=== PATIENT | female | born 1970 | race Caucasian/White ===

== ENCOUNTER 2019-05-08 16:16 | Inpatient (IN) | payer OTHER ==
[2019-05-08 16:49] VITALS: BMI 19.3
--- NOTE | 2019-05-08 18:47 | HP ---
CIWA Score Nausea/Vomitin Muscle Tremors: 3 Anxiety: 4-Mod. Anxious/Guarded Agitation: 2 Paroxysmal Sweats: 3 Orientation: 0-Oriented Tacttile Disturbances: 2-Mild Itch/Numbness/Burn Auditory Disturbances: 0-None Visual Disturbances: 2-Mild Sensitivity Headache: 0-None Present CIWA-Ar Total Score: 19 - Admission Criteria OASAS Guidelines: Admission for Medically Managed Detox: Requires at least one of the followin. CIWA greater than 12 2. Seizures within the past 24 hours 3. Delirium tremens within the past 24 hours 4. Hallucinations within the past 24 hours 5. Acute intervention needed for co occurring medical disorder 6. Acute intervention needed for co occurring psychiatric disorder 7. Severe withdrawal that cannot be handled at a lower level of care (continued vomiting, continued diarrhea, abnormal vital signs) requiring intravenous medication and/or fluids 8. Admitting History and Physical - Primary Care Physician PCP: Miguel Darling MD ([facility]) - Admission Chief Complaint: "I just want to get off of illegal drugs and drinking.". Patient is here to Detox from Alcohol and Heroin. History of Present Illness: Patient is a 48 YO female here to Detox from Alcohol and Heroin. Patient has had 1 previous Detox admission at [facility] in 02/2019. Patient also uses Cocaine (approx. 1 X / week). [facility] [place] daily dose: 40 mg daily, last day taken: today, 05/08/2019. Verification Pending. Confidential Drug Utilization Report Search Terms: Domenica Vazquez, 1970 Search Date: 05/08/2019 09:43:15 PM The Drug Utilization Report below displays all of the controlled substance prescriptions, if any, that your patient has filled in the last twelve months. The information displayed on this report is compiled from pharmacy submissions to the Department, and accurately reflects the information as submitted by the pharmacies. This report was requested by: Philip Alcocer | Reference #: [id number] You have not added a LUKE number. Keeping your LUKE number(s) up to date on the My LUKE Numbers page will enable the separation of your prescriptions from others ' in the search results. Others' Prescriptions Patient Name: Shyann Vazquez Date: 1970 Address: [address] [place] [address] [place] [id number] Sex: Female Rx Written Rx Dispensed Drug Quantity Days Supply Prescriber Name 08/02/2018 08/02/2018 clonazepam 1 mg tablet 30 30 Lucille Solomon B, MD 06/30/2018 06/30/2018 clonazepam 1 mg tablet 30 30 Lucille Solomon B, MD 05/31/2018 05/31/2018 clonazepam 1 mg tablet 30 30 Anthony Hendrickson * - Drugs marked with an asterisk are compound drugs. If the compound drug is made up of more than one controlled substance, then each controlled substance will be a separate row in the table. History Source: Patient Limitations to Obtaining History: No Limitations - Past Medical History Cardiovascular: Yes: Other (History of Endocarditis (2014), Subsequent Colapsed Lung (Bilateral).) Pulmonary: Yes: COPD (Chronic Bronchitis.) ...LMP Comment: Last: 11/2017. ...: No Psych: Yes: Anxiety, Depression, Other (Possible P.T.S.D. ?) Additional Past Medical History: DENIES. - Past Surgical History Past Surgical History: Yes: Cystectomy (1990) Additional Past Surgical History: Removal of Tumor on Carotid Artery (2017). - Smoking History Smoking history: Current every day smoker Have you smoked in the past 12 months: Yes Aproximately how many cigarettes per day: 6 - Alcohol/Substance Use Hx Alcohol Use: Yes Number of Drinks Daily: 12 (Beers (16 oz.)) History of Substance Use: reports: Cocaine, Heroin Date of Last Use: 05/08/19 - Social History Usual Living Arrangement: Yes: Other (Living with friends, wishes to go back to former Nursing Home.) Do you think of yourself as: Straight/Heterosexual ADL: Independent Occupation: Not Currently, on SSI. History of Recent Travel: No Admission [facility] Chief Complaint: "I just want to get off of illegal drugs and drinking." Patient is here to Detox from Alcohol and Heroin. Allergies/Adverse Reactions: Allergies Allergy/AdvReac Type Severity Reaction Status Date / Time tramadol [From Ultram] Allergy Severe throat Verified 05/08/19 16:21 swelling History of Present Illness: Patient is a 48 YO female here to Detox from Alcohol and Heroin. Patient has had 1 previous Detox admission at [facility] in 02/2019. Patient also uses Cocaine (approx. 1 X / week). Patient is a client at [facility] ([place], [place]), daily dose: 40 mg daily, last day taken: today, 05/08/2019. Exam Limitations: No Limitations - Ebola screening Have you traveled outside of the country in the last 21 days: No (N) Have you had contact with anyone from an Ebola affected area: No Have you been sick,other than usual withdrawal symptoms: Yes (Has a "cold." Cough, Nasal Congestion.) Do you have a fever: No - Review of Systems Constitutional: Chills, Diaphoresis, Malaise, Night Sweats, Changes in sleep, Unintentional Wgt. Loss (Lost approx. 18 lbs. over last 6 months.) EENT: reports: Nose Congestion Respiratory: reports: Cough (Has a "cold.") Cardiac: reports: Palpitations (Occasional.) GI: reports: Diarrhea, Nausea, Poor Appetite, Abdominal cramping (Intermittent, due to history of hernia.) : reports: No Symptoms Reported Musculoskeletal: reports: Back Pain Integumentary: reports: Other (Small scabbing wounds on bilateral forearms and on popliteal fossa of Right Knee.) Neuro: reports: Headache, Tremors Endocrine: reports: No Symptoms Reported Hematology: reports: Anemia (In past, treated with Iron supplement.) Psychiatric: reports: No Sypmtoms Reported, Judgement Intact, Mood/Affect Appropiate, Orientated x3, Anxious, Depressed Other Systems: Reviewed and Negative Patient History - Patient Medical History Hx Anemia: Yes (Has taken Iron supplement in past.) Hx Asthma: No Hx Chronic Obstructive Pulmonary Disease (COPD): Yes (Chronic Bronchitis.) Hx Cancer: No Hx Cardiac Disorders: Yes (HX/O ENDOCARDITIS, 2015.) Hx Congestive Heart Failure: No Hx Hypertension: No Hx Hypercholesterolemia: No Hx Pacemaker: No HX Cerebrovascular Accident: No Hx Seizures: No Hx Dementia: No Hx Diabetes: No Hx Gastrointestinal Disorders: Yes (UMBILICAL HERNIA WITH INTERMITTENT PAIN) Hx Liver Disease: Yes (HEP C, TX'd WITH MAVIROC, COMPLETED.) Hx Genitourinary Disorders: No Hx Sexually Transmitted Disorders: No Hx Renal Disease (ESRD): No Hx Thyroid Disease: No Hx Human Immunodeficiency Virus (HIV): No (Recently Tested, Uncertain about exactly when.) Hx Hepatitis C: Yes (COMPLETED TREATMENT W/ MAVIRIOC.) Hx Depression: Yes (AND ANXIETY-DENIES SI) Hx Suicide Attempt: No (DENIES CURRENT SI / HI.) Hx Bipolar Disorder: No Hx Schizophrenia: No Other Medical History: DENIES. - Patient Surgical History Past Surgical History: Yes Hx Neurologic Surgery: No Hx Cataract Extraction: No Hx Cardiac Surgery: No Hx Lung Surgery: No Hx Breast Surgery: No Hx Breast Biopsy: No Hx Abdominal Surgery: No Hx Appendectomy: No Hx Cholecystectomy: No Hx Genitourinary Surgery: No Hx Section: No Hx Orthopedic Surgery: No Other Surgical History: LEFT CAROTID TUMOR REMOVED 2007; OVARIAN CYSTECTOMY, 1997. Anesthesia Reaction: No - PPD History Previous Implant?: Yes Documented Results: Negative w/o proof Implanted On Prior [facility] Admission?: No PPD to be Administered?: Yes - Reproductive History Patient is a Female of Child Bearing Age (11 -55 yrs old): Yes Last Menstrual Period: 12/11/16 Patient : No - Smoking Cessation Smoking history: Current every day smoker Have you smoked in the past 12 months: Yes Aproximately how many cigarettes per day: 6 Cigars Per Day: 0 Hx Chewing Tobacco Use: No Initiated information on smoking cessation: Yes 'Breaking Loose' booklet given: 05/08/19 (GIVEN TO PATIENT.) - Substance & Tx. History Hx Alcohol Use: Yes Hx Substance Use: Yes Substance Use Type: Alcohol, Cocaine, Heroin Hx Substance Use Treatment: Yes (Detox admssion at [facility] (03/2019).) - Substances abused Alcohol Other (specify): BEERS Substance route: Oral Frequency: Daily Amount used: 8- 12 OZ beers Age of first use: 14 Date of last use: 05/08/19 Heroin Frequency: Daily Amount used: 2 bags Age of first use: 25 Date of last use: 05/06/19 Cocaine Substance route: Smoking Frequency: 1-2 times per week Amount used: $20 Age of first use: 26 Date of last use: 05/05/19 Admission Physical Exam BHS - Vital Signs Vital Signs: Vital Signs - 24 hr 05/08/19 16:46 Temperature 97.2 F L Pulse Rate 77 Respiratory 16 Rate Blood Pressure 105/64 - Physical General Appearance: Yes: No Apparent Distress, Nourished, Appropriately Dressed , Tremorous, Sweating, Anxious, Other (Lethargic.) HEENTM: Yes: Hearing grossly Normal, Normocephalic, Normal Voice, ALLISON, Pharynx Normal Respiratory: Yes: Chest Non-Tender, Lungs Clear, No Respiratory Distress, No Accessory Muscle Use Neck: Yes: No masses,lesions,Nodules, Supple, Trachea in good position Breast: Yes: Breast Exam Deferred Cardiology: Yes: Regular Rhythm, Regular Rate, S1, S2 Abdominal: Yes: Normal Bowel Sounds, Non Tender, Flat, Soft Genitourinary: Yes: Within Normal Limits Back: Yes: CVA Tenderness, Decreased Range of Motion Musculoskeletal: Yes: Gait Steady, Back pain Extremities: Yes: Normal Capillary Refill, Normal Range of Motion, Non-Tender, Tremors Neurological: Yes: Fully Oriented, Alert, Normal Mood/Affect, Normal Response Integumentary: Yes: Normal Color, Dry, Warm, Other (Several small wounds on bilateral forearms. Patient reports that she "picks" at those areas when she is withdrawing. No discahrge or signs of infection noted at affected sites. Small scabbing wound noted at lateral aspect of popliteal area of right knee. Patient reprots that area feels painful. Patient uncertain how wound occurred. No discharge or sign of infection noted at site.) Lymphatic: Yes: Within Normal Limits - Diagnostic (1) History of endocarditis Current Visit: No Status: Resolved (2) Alcohol dependence with uncomplicated withdrawal Current Visit: Yes Status: Acute (3) COPD (chronic obstructive pulmonary disease) Current Visit: Yes Status: Chronic Qualifiers: COPD type: chronic bronchitis Chronic bronchitis type: unspecified Qualified Code(s): J42 - Unspecified chronic bronchitis (4) HCV (hepatitis C virus) Current Visit: No Status: Resolved Qualifiers: Viral hepatitis chronicity: unspecified Hepatic coma status: without hepatic coma Qualified Code(s): B19.20 - Unspecified viral hepatitis C without hepatic coma Comment: Completed Treatment. (5) Methadone maintenance therapy patient Current Visit: Yes Status: Chronic (6) Nicotine dependence Current Visit: Yes Status: Chronic Qualifiers: Nicotine product type: cigarettes Substance use status: uncomplicated Qualified Code(s): F17.210 - Nicotine dependence, cigarettes, uncomplicated (7) Anxiety and depression Current Visit: Yes Status: Chronic Cleared for Admission S - Detox or Rehab [facility] Level of Care: Medically Managed Detox Regimen/Protocol: Methadone/Librium Claeared for Rehab Admission: No Breathalyzer - Breathalyzer Breathalyzer: 0 Urine Drug Screen - Test Device Lot number: [id number] Expiration date: 12/24/20 - Control Is test valid?: Yes - Results Drug screen NEGATIVE: Yes Urine drug screen results: PRIMITIVO-Cocaine, FEN-Fentanyl, MOP-Opiates, MTD-Methadone , BZO-Benzodiazepines Inpatient Rehab Admission - Rehab Decision to Admit Inpatient rehab admission?: No
[2019-05-08] MEDS ORDERED: METHOCARBAMOL 500 MG TABLET PO PRN (19:25)
[2019-05-08] MEDS ORDERED: MAGNESIUM HYDROX 2400MG/30ML ORAL SUSPENSION 30 ML CUP PO PRN (19:25)
[2019-05-08] MEDS ORDERED: BISMUTH SUBSALICYLATE 524 MG/30 ML UD PO PRN (19:25)
[2019-05-08] MEDS ORDERED: IBUPROFEN 400 MG TABLET (FP) PO PRN (19:25)
[2019-05-08] MEDS ORDERED: MAG HYDROX/AL HYDROX/SIMETH 30 ML UNIT-DOSE CUP PO PRN (19:25)
[2019-05-08] MEDS ORDERED: ACETAMINOPHEN 325 MG TABLET (FP) PO PRN ×2 (19:25)
[2019-05-08] MEDS ORDERED: LORazepam 1 MG TABLET PO PRN (19:25)
[2019-05-08] MEDS ORDERED: MENTHOL/PHENOL 1 EACH UD MM PRN (19:25)
[2019-05-08] MEDS ORDERED: MAGNESIUM CITRATE 300 ML BOTTLE PO PRN (19:25)
[2019-05-08] MEDS ORDERED: guaiFENesin 200 MG/10 ML 10 ML UNIT-DOSE CUPS PO PRN (19:29)
[2019-05-08] MEDS ORDERED: ALBUTEROL SO4 8 GM HFA INHALER IH PRN (19:29)
[2019-05-08] MEDS ORDERED: LORazepam 2 MG TABLET PO ONE (19:45)
[2019-05-08] MEDS: THIAMINE HCL 100 MG TABLET (FP) PO SCH (22:23)
[2019-05-08] MEDS: BUDESONIDE/FORMETEROL FUMARATE 160/4.5 mcg INHALER IH SCH (22:23)
[2019-05-08] MEDS: BACITRACIN/POLYMYXIN B SULFATE 15 GM TUBE TP SCH (22:42)
[2019-05-09] MEDS: LORazepam 2 MG TABLET PO SCH ×4 (05:41→22:05)
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
[2019-05-09 10:07] LABS: HEMATOCRIT 36.5 % (32.4-45.2); HEMOGLOBIN 12.1 GM/dL (10.7-15.3); MCHC 33.1 g/dl (32.0-36.0); MEAN CELL VOLUME 102.5 fl (80-96); MEAN PLT VOLUME 8.6 fl (7.5-11.1); PLATELET COUNT 207 K/MM3 (134-434); RBC 3.56 M/mm3 (3.60-5.2); RDW 13.5 % (11.6-15.6); WHITE BLOOD COUNT 5.5 K/mm3 (4.0-10.0)
[2019-05-09 10:13] LABS: ALBUMIN 2.7 g/dl (3.4-5.0); BILIRUBIN,TOTAL 0.2 mg/dL (0.2-1); BLOOD UREA NITROGEN 8.9 mg/dL (7-18); CALCIUM 8.5 mg/dL (8.5-10.1); CREATININE 0.7 mg/dL (0.55-1.3); POTASSIUM 4.1 mmol/L (3.5-5.1); TOT PROT 5.9 g/dl (6.4-8.2)
[2019-05-09] MEDS: NICOTINE 14 MG/24 HOURS TOPICAL PATCH TD SCH (10:46)
[2019-05-09] MEDS: BACITRACIN/POLYMYXIN B SULFATE 15 GM TUBE TP SCH ×2 (10:46→22:04)
[2019-05-09] MEDS: BUDESONIDE/FORMETEROL FUMARATE 160/4.5 mcg INHALER IH SCH ×2 (10:46→22:04)
[2019-05-09] MEDS: PRENATAL VITAMINS W/ FOLIC ACID TABLET (FP) PO SCH (10:46)
--- NOTE | 2019-05-09 13:05 | EKG ---
Test Reason : Blood Pressure : / mmHG Vent. Rate : 072 BPM Atrial Rate : 072 BPM P-R Int : 094 ms QRS Dur : 086 ms QT Int : 404 ms P-R-T Axes : 064 045 072 degrees QTc Int : 442 ms SINUS RHYTHM WITH SHORT WI SEPTAL INFARCT (CITED ON OR BEFORE 14-MAR-2019) ABNORMAL ECG WHEN COMPARED WITH ECG OF 14-MAR-2019 22:13, QUESTIONABLE CHANGE IN INITIAL FORCES OF SEPTAL LEADS Confirmed by ILIANA RIVERA MD ([id number]) on 05/09/2019 1:05:13 PM Referred By: SHANELL GUO Confirmed By:ILIANA RIVERA MD
[2019-05-09] MEDS ORDERED: METHADONE HCL 40 MG DISPERSABLE TABLET PO ONE (13:30)
--- NOTE | 2019-05-09 19:07 | PN ---
S CIWA - CIWA Score Nausea/Vomitin-No Nausea/No Vomiting Muscle Tremors: 2 Anxiety: 4-Mod. Anxious/Guarded Agitation: 3 Paroxysmal Sweats: 2 Orientation: 0-Oriented Tacttile Disturbances: 2-Mild Itch/Numbness/Burn Auditory Disturbances: 0-None Visual Disturbances: 0-None Headache: 0-None Present CIWA-Ar Total Score: 13 BHS Progress Note (SOAP) Subjective: Anxious, Sweating, Tremors, Fatigue. Objective: PATIENT A & O X 3, OBSERVED AMBULATING ON DETOX UNIT UNASSISTED. IN NO ACUTE DISTRESS. 05/09/19 19:06 Vital Signs Temperature 98.5 F 05/09/19 17:12 Pulse Rate 77 05/09/19 17:12 Respiratory Rate 16 05/09/19 17:12 Blood Pressure 134/78 05/09/19 17:12 O2 Sat by Pulse Oximetry (%) Laboratory Tests 05/08/19 05/09/19 05/09/19 17:17 08:00 08:00 WBC 5.5 RBC 3.56 L Hgb 12.1 Hct 36.5 MCV 102.5 H MCH 34.0 H MCHC 33.1 RDW 13.5 Plt Count 207 MPV 8.6 Sodium 142 Potassium 4.1 Chloride 106 Carbon Dioxide 32 Anion Gap 4 L BUN 8.9 Creatinine 0.7 Est GFR (CKD-EPI)AfAm 117.09 Est GFR (CKD-EPI)NonAf 101.02 Random Glucose 84 Calcium 8.5 Total Bilirubin 0.2 AST 17 ALT 20 Alkaline Phosphatase 100 Total Protein 5.9 L Albumin 2.7 L POC Urine HCG, Qual Negative RPR Titer 05/09/19 08:00 WBC RBC Hgb Hct MCV MCH MCHC RDW Plt Count MPV Sodium Potassium Chloride Carbon Dioxide Anion Gap BUN Creatinine Est GFR (CKD-EPI)AfAm Est GFR (CKD-EPI)NonAf Random Glucose Calcium Total Bilirubin AST ALT Alkaline Phosphatase Total Protein Albumin POC Urine HCG, Qual RPR Titer Nonreactive LABS NOTED. Assessment: 05/09/19 19:07 WITHDRAWAL SYMPTOMS. Plan: CONTINUE DETOX.
[2019-05-09] MEDS: THIAMINE HCL 100 MG TABLET (FP) PO SCH (22:04)
[2019-05-10] MEDS: LORazepam 1 MG TABLET PO SCH ×4 (05:23→22:07)
[2019-05-10] MEDS: BUDESONIDE/FORMETEROL FUMARATE 160/4.5 mcg INHALER IH SCH ×2 (10:05→22:08)
[2019-05-10] MEDS: METHADONE HCL 40 MG DISPERSABLE TABLET PO SCH (10:05)
[2019-05-10] MEDS: NICOTINE 14 MG/24 HOURS TOPICAL PATCH TD SCH (10:06)
[2019-05-10] MEDS: BACITRACIN/POLYMYXIN B SULFATE 15 GM TUBE TP SCH ×2 (10:06→22:08)
[2019-05-10] MEDS: PRENATAL VITAMINS W/ FOLIC ACID TABLET (FP) PO SCH (10:06)
[2019-05-10] MEDS ORDERED: BACLOFEN 10 MG TABLET (FP) PO PRN (14:09)
--- NOTE | 2019-05-10 14:12 | PN ---
S CIWA - CIWA Score Nausea/Vomitin-No Nausea/No Vomiting Muscle Tremors: 2 Anxiety: 3 Agitation: 1-Slight > Activity Paroxysmal Sweats: 2 Orientation: 0-Oriented Tacttile Disturbances: 1-Very Mild Itch/Numbness Auditory Disturbances: 0-None Visual Disturbances: 2-Mild Sensitivity Headache: 0-None Present CIWA-Ar Total Score: 11 BHS Progress Note (SOAP) Subjective: Fatigue, Body Aches, Anxious, Sweating. Objective: PATIENT A & O X 3. IN NO ACUTE DISTRESS. 05/10/19 14:10 Vital Signs Temperature 98.2 F 05/10/19 13:17 Pulse Rate 94 H 05/10/19 13:17 Respiratory Rate 20 05/10/19 13:17 Blood Pressure 119/79 05/10/19 13:17 O2 Sat by Pulse Oximetry (%) Laboratory Tests 05/08/19 05/09/19 05/09/19 17:17 08:00 08:00 WBC 5.5 RBC 3.56 L Hgb 12.1 Hct 36.5 MCV 102.5 H MCH 34.0 H MCHC 33.1 RDW 13.5 Plt Count 207 MPV 8.6 Sodium 142 Potassium 4.1 Chloride 106 Carbon Dioxide 32 Anion Gap 4 L BUN 8.9 Creatinine 0.7 Est GFR (CKD-EPI)AfAm 117.09 Est GFR (CKD-EPI)NonAf 101.02 Random Glucose 84 Calcium 8.5 Total Bilirubin 0.2 AST 17 ALT 20 Alkaline Phosphatase 100 Total Protein 5.9 L Albumin 2.7 L POC Urine HCG, Qual Negative RPR Titer 05/09/19 08:00 WBC RBC Hgb Hct MCV MCH MCHC RDW Plt Count MPV Sodium Potassium Chloride Carbon Dioxide Anion Gap BUN Creatinine Est GFR (CKD-EPI)AfAm Est GFR (CKD-EPI)NonAf Random Glucose Calcium Total Bilirubin AST ALT Alkaline Phosphatase Total Protein Albumin POC Urine HCG, Qual RPR Titer Nonreactive LABS NOTED. Assessment: 05/10/19 14:11 WITHDRAWAL SYMPTOMS. Plan: CONTINUE DETOX. PRN BACLOFEN PO FOR BODY ACHES / MUSCLE SPASMS (PATIENT'S REQUEST).
[2019-05-10] MEDS: THIAMINE HCL 100 MG TABLET (FP) PO SCH (22:07)
[2019-05-10] MEDS: MELATONIN 5 MG TABLETS PO PRN (22:08)
[2019-05-11] MEDS ORDERED: LORazepam 0.5 MG TABLET PO PRN
[2019-05-11] MEDS: METHADONE HCL 40 MG DISPERSABLE TABLET PO SCH (05:59)
[2019-05-11] MEDS: LORazepam 0.5 MG TABLET PO SCH ×4 (05:59→22:15)
[2019-05-11] MEDS: NICOTINE 14 MG/24 HOURS TOPICAL PATCH TD SCH (10:47)
[2019-05-11] MEDS: BACITRACIN/POLYMYXIN B SULFATE 15 GM TUBE TP SCH ×2 (10:47→22:15)
[2019-05-11] MEDS: BUDESONIDE/FORMETEROL FUMARATE 160/4.5 mcg INHALER IH SCH ×2 (10:48→22:15)
[2019-05-11] MEDS: PRENATAL VITAMINS W/ FOLIC ACID TABLET (FP) PO SCH (10:48)
--- NOTE | 2019-05-11 17:23 | PN ---
S CIWA - CIWA Score Nausea/Vomitin-No Nausea/No Vomiting Muscle Tremors: None Anxiety: 0-No Anxiety, at Ease Agitation: 1-Slight > Activity Paroxysmal Sweats: No Perspiration Orientation: 0-Oriented Tacttile Disturbances: 0-None Auditory Disturbances: 0-None Visual Disturbances: 0-None Headache: 0-None Present CIWA-Ar Total Score: 1 BHS Progress Note (SOAP) Subjective: Patient denies current Withdrawal / Detox symptoms and reports that he feels well overall at this time. Objective: PATIENT A & O X 3, OBSERVED AMBULATING ON DETOX UNIT UNASSISTED. IN NO ACUTE DISTRESS. 05/11/19 17:22 Vital Signs Temperature 97.3 F L 05/11/19 13:57 Pulse Rate 97 H 05/11/19 13:57 Respiratory Rate 18 05/11/19 13:57 Blood Pressure 109/76 05/11/19 13:57 O2 Sat by Pulse Oximetry (%) Laboratory Tests 05/08/19 05/09/19 05/09/19 17:17 08:00 08:00 WBC 5.5 RBC 3.56 L Hgb 12.1 Hct 36.5 MCV 102.5 H MCH 34.0 H MCHC 33.1 RDW 13.5 Plt Count 207 MPV 8.6 Sodium 142 Potassium 4.1 Chloride 106 Carbon Dioxide 32 Anion Gap 4 L BUN 8.9 Creatinine 0.7 Est GFR (CKD-EPI)AfAm 117.09 Est GFR (CKD-EPI)NonAf 101.02 Random Glucose 84 Calcium 8.5 Total Bilirubin 0.2 AST 17 ALT 20 Alkaline Phosphatase 100 Total Protein 5.9 L Albumin 2.7 L POC Urine HCG, Qual Negative RPR Titer 05/09/19 08:00 WBC RBC Hgb Hct MCV MCH MCHC RDW Plt Count MPV Sodium Potassium Chloride Carbon Dioxide Anion Gap BUN Creatinine Est GFR (CKD-EPI)AfAm Est GFR (CKD-EPI)NonAf Random Glucose Calcium Total Bilirubin AST ALT Alkaline Phosphatase Total Protein Albumin POC Urine HCG, Qual RPR Titer Nonreactive LABS NOTED. Assessment: 05/11/19 17:23 WITHDRAWAL SYMPTOMS. Plan: CONTINUE DETOX. PATIENT SCHEDULED FOR D/C FROM DETOX UNIT TOMORROW.
[2019-05-11] MEDS: THIAMINE HCL 100 MG TABLET (FP) PO SCH (22:15)
[2019-05-11] MEDS: MELATONIN 5 MG TABLETS PO PRN (22:15)
[2019-05-12] MEDS ORDERED: LORazepam 0.5 MG TABLET PO ONE (05:00)
[2019-05-12] MEDS: METHADONE HCL 40 MG DISPERSABLE TABLET PO SCH (05:26)
[2019-05-12 06:20] VITALS: BP 141/92; PULSE 76; TEMP 97.8
--- NOTE | 2019-05-12 14:59 | DS ---
[facility] Detox Discharge Summary Admission Date: 05/08/19 Discharge Date: 05/12/19 - History Present History: Alcohol Dependence Additional Comments: did well with ativan detox regimen no complication through out the detox stay patient is alert oriented x 3 respiratory clear lung bilaterally on auscultatin abdomen soft no rebound tenderness - Physical Exam Results Vital Signs: Vital Signs Temperature 97.8 F 05/12/19 06:20 Pulse Rate 76 05/12/19 06:20 Respiratory Rate 18 05/12/19 06:20 Blood Pressure 141/92 05/12/19 06:20 O2 Sat by Pulse Oximetry (%) Pertinent Admission Physical Exam Findings: alcohol withdrawal sx Laboratory Last Values WBC 5.5 K/mm3 (4.0-10.0) 05/09/19 08:00 RBC 3.56 M/mm3 (3.60-5.2) L 05/09/19 08:00 Hgb 12.1 GM/dL (10.7-15.3) 05/09/19 08:00 Hct 36.5 % (32.4-45.2) 05/09/19 08:00 MCV 102.5 fl (80-96) H 05/09/19 08:00 MCH 34.0 pg (25.7-33.7) H 05/09/19 08:00 MCHC 33.1 g/dl (32.0-36.0) 05/09/19 08:00 RDW 13.5 % (11.6-15.6) 05/09/19 08:00 Plt Count 207 K/MM3 (134-434) 05/09/19 08:00 MPV 8.6 fl (7.5-11.1) 05/09/19 08:00 Sodium 142 mmol/L (136-145) 05/09/19 08:00 Potassium 4.1 mmol/L (3.5-5.1) 05/09/19 08:00 Chloride 106 mmol/L (98-107) 05/09/19 08:00 Carbon Dioxide 32 mmol/L (21-32) 05/09/19 08:00 Anion Gap 4 MMOL/L (8-16) L 05/09/19 08:00 BUN 8.9 mg/dL (7-18) 05/09/19 08:00 Creatinine 0.7 mg/dL (0.55-1.3) 05/09/19 08:00 Est GFR (CKD-EPI)AfAm 117.09 05/09/19 08:00 Est GFR (CKD-EPI)NonAf 101.02 05/09/19 08:00 Random Glucose 84 mg/dL (74-106) 05/09/19 08:00 Calcium 8.5 mg/dL (8.5-10.1) 05/09/19 08:00 Total Bilirubin 0.2 mg/dL (0.2-1) 05/09/19 08:00 AST 17 U/L (15-37) 05/09/19 08:00 ALT 20 U/L (13-61) 05/09/19 08:00 Alkaline Phosphatase 100 U/L (45-117) 05/09/19 08:00 Total Protein 5.9 g/dl (6.4-8.2) L 05/09/19 08:00 Albumin 2.7 g/dl (3.4-5.0) L 05/09/19 08:00 POC Urine HCG, Qual Negative 05/08/19 17:17 RPR Titer Nonreactive (NONREACTIVE) 05/09/19 08:00 lab noted - Treatment Hospital Course: Detox Protocol Followed, Detoxed Safely, Responded well, Discharged Condition Good, Rehab Referral Accepted - Medication Discharge Medications: Ambulatory Orders Budesonide/Formeterol Fumarate [SYMBICORT 160/4.5mcg -] 1 inh PO BID 03/14/19 Citalopram Hydrobromide [Citalopram HBr] 40 mg PO HS 03/14/19 Clonazepam [Klonopin] 1 mg PO DAILY 03/14/19 Tiotropium [facility] [Spiriva] 1 inh PO DAILY 03/14/19 - Diagnosis (1) Alcohol dependence with uncomplicated withdrawal Status: Acute (2) Substance induced mood disorder Status: Suspected (3) Methadone maintenance therapy patient Status: Chronic (4) Nicotine dependence Status: Acute Qualifiers: Nicotine product type: cigarettes Substance use status: in withdrawal Qualified Code(s): F17.213 - Nicotine dependence, cigarettes, with withdrawal (5) HCV (hepatitis C virus) Status: Resolved Qualifiers: Viral hepatitis chronicity: unspecified Hepatic coma status: without hepatic coma Qualified Code(s): B19.20 - Unspecified viral hepatitis C without hepatic coma - AMA Did Patient Leave Against Medical Advice: No CIWA Score - CIWA Score Nausea/Vomitin-No Nausea/No Vomiting Muscle Tremors: None Anxiety: 0-No Anxiety, at Ease Agitation: 0-Normal Activity Paroxysmal Sweats: No Perspiration Orientation: 0-Oriented Tacttile Disturbances: 0-None Auditory Disturbances: 0-None Visual Disturbances: 0-None Headache: 0-None Present CIWA-Ar Total Score: 0
== END 2019-05-12 11:14 | disposition home or self-care (01) | DRG 773 ==
LOC: YASAS 16:16 → Y3N 19:34
PROVIDERS: ADMIT Allergy & Immunology; ATTEND Allergy & Immunology
PROC: HZ2ZZZZ Detoxification Services for Substance Abuse Treatment (ICD-10-PCS; principal; 2019-05-08)
DX: F10.230 Alcohol dependence with withdrawal, uncomplicated (principal); F11.20 Opioid dependence, uncomplicated; F14.10 Cocaine abuse, uncomplicated; F17.210 Nicotine dependence, cigarettes, uncomplicated; F19.282 Other psychoactive substance dependence with psychoactive substance-induced sleep disorder; F19.24 Other psychoactive substance dependence with psychoactive substance-induced mood disorder; F41.9 Anxiety disorder, unspecified; B19.20 Unspecified viral hepatitis C without hepatic coma; Z86.79 Personal history of other diseases of the circulatory system; K42.9 Umbilical hernia without obstruction or gangrene; Z88.8 Allergy status to other drugs, medicaments and biological substances; Z59.0 Homelessness
CPT/HCPCS: 36415; 80053; 81025; 85027; 86593; 93005; 93010

== ENCOUNTER 2019-07-21 16:19 | Inpatient (IN) | payer OTHER ==
[2019-07-21 19:21] VITALS: BMI 19.2
--- NOTE | 2019-07-22 00:11 | HP ---
CIWA Score Nausea/Vomitin Muscle Tremors: 4-Moderate,w/Arms Extend Anxiety: 4-Mod. Anxious/Guarded Agitation: 4-Moderately Restless Paroxysmal Sweats: 2 Orientation: 0-Oriented Tacttile Disturbances: 0-None Auditory Disturbances: 0-None Visual Disturbances: 0-None Headache: 0-None Present CIWA-Ar Total Score: 16 - Admission Criteria OASAS Guidelines: Admission for Medically Managed Detox: Requires at least one of the followin. CIWA greater than 12 2. Seizures within the past 24 hours 3. Delirium tremens within the past 24 hours 4. Hallucinations within the past 24 hours 5. Acute intervention needed for co occurring medical disorder 6. Acute intervention needed for co occurring psychiatric disorder 7. Severe withdrawal that cannot be handled at a lower level of care (continued vomiting, continued diarrhea, abnormal vital signs) requiring intravenous medication and/or fluids 8. Admitting History and Physical - Past Medical History Cardiovascular: Yes: Other (History of Endocarditis (2014), Subsequent Colapsed Lung (Bilateral).) Pulmonary: Yes: COPD (Chronic Bronchitis.) ...LMP: 12/11/16 Psych: Yes: Anxiety, Depression, Other (Possible P.T.S.D. ?) - Past Surgical History Past Surgical History: Yes: Cystectomy (1990) - Smoking History Smoking history: Current every day smoker Have you smoked in the past 12 months: Yes Aproximately how many cigarettes per day: 6 - Alcohol/Substance Use Hx Alcohol Use: Yes Number of Drinks Daily: 12 (Beers (16 oz.)) History of Substance Use: reports: Cocaine, Heroin Date of Last Use: 05/08/19 - Social History ADL: Independent Occupation: Not Currently, on SSI. History of Recent Travel: No Admission [facility] Chief Complaint: Alcohol withdrawal symptoms Allergies/Adverse Reactions: Allergies Allergy/AdvReac Type Severity Reaction Status Date / Time tramadol [From Ultram] Allergy Severe throat Verified 05/08/19 16:21 swelling History of Present Illness: 48 years old female with a long history of alcohol dependence is seeking admission to detox. Patient has been in previous detox, last for the period - . She has medical history of Anemia, Hep. C, COPD, Endocarditis and psych. history of Depression, schizophrenia and bipolar disorder. She reports suicide attempt in March 2019 and denies suicidal ideation at this time. Patient is n Methadone 40mg with [facility] MMTP, [place]. Dose is yet to be confirmed by the nurse - Ebola screening Have you traveled outside of the country in the last 21 days: No (N) Have you had contact with anyone from an Ebola affected area: No Do you have a fever: No - Review of Systems Constitutional: Chills, Loss of Appetite, Malaise, Changes in sleep EENT: reports: Nose Congestion Respiratory: reports: No Symptoms reported Cardiac: reports: No Symptoms Reported GI: reports: Diarrhea, Nausea, Poor Appetite, Poor Fluid Intake, Abdominal cramping : reports: No Symptoms Reported Musculoskeletal: reports: Back Pain, Joint Pain, Muscle Pain Integumentary: reports: Dryness, Flushing Neuro: reports: Headache, Tremors Endocrine: reports: No Symptoms Reported Hematology: reports: No Symptoms Reported Psychiatric: reports: Orientated x3 Other Systems: Reviewed and Negative Patient History - Patient Medical History Hx Anemia: Yes (Has taken Iron supplement in past.) Hx Asthma: No Hx Chronic Obstructive Pulmonary Disease (COPD): Yes (Chronic Bronchitis.) Hx Cancer: No Hx Cardiac Disorders: Yes (HX/O ENDOCARDITIS, 2015.) Hx Congestive Heart Failure: No Hx Hypertension: No Hx Hypercholesterolemia: No Hx Pacemaker: No HX Cerebrovascular Accident: No Hx Seizures: No Hx Dementia: No Hx Diabetes: No Hx Gastrointestinal Disorders: Yes (UMBILICAL HERNIA WITH INTERMITTENT PAIN) Hx Liver Disease: Yes (HEP C, TX'd WITH MAVIROC, COMPLETED.) Hx Genitourinary Disorders: No Hx Sexually Transmitted Disorders: No Hx Renal Disease (ESRD): No Hx Thyroid Disease: No Hx Human Immunodeficiency Virus (HIV): No (Recently Tested, Uncertain about exactly when.) Hx Hepatitis C: Yes (COMPLETED TREATMENT W/ MAVIRIOC.) Hx Depression: Yes (AND ANXIETY-DENIES SI) Hx Suicide Attempt: No (DENIES CURRENT SI / HI.) Hx Bipolar Disorder: No Hx Schizophrenia: No - Patient Surgical History Past Surgical History: Yes Hx Neurologic Surgery: No Hx Cataract Extraction: No Hx Cardiac Surgery: No Hx Lung Surgery: No Hx Breast Surgery: No Hx Breast Biopsy: No Hx Abdominal Surgery: No Hx Appendectomy: No Hx Cholecystectomy: No Hx Genitourinary Surgery: No Hx Section: No Hx Orthopedic Surgery: No Other Surgical History: LEFT CAROTID TUMOR REMOVED 2007; OVARIAN CYSTECTOMY, 1997. Anesthesia Reaction: No - PPD History Previous Implant?: Yes Documented Results: Positive w/proof Date: 05/10/19 PPD to be Administered?: No - Reproductive History Patient is a Female of Child Bearing Age (11 -55 yrs old): No Last Menstrual Period: 12/11/16 LMP comment: Menopausal - Smoking Cessation Smoking history: Never smoked Have you smoked in the past 12 months: Yes Aproximately how many cigarettes per day: 6 Cigars Per Day: 0 Hx Chewing Tobacco Use: No Initiated information on smoking cessation: Yes 'Breaking Loose' booklet given: 07/22/19 - Substance & Tx. History Hx Alcohol Use: Yes Hx Substance Use: Yes Substance Use Type: Alcohol, Cocaine Hx Substance Use Treatment: Yes - Substances abused Alcohol Other (specify): BEERS Substance route: Oral Frequency: Daily Amount used: 8- 12 OZ beers Age of first use: 14 Date of last use: 07/20/19 Heroin Other (specify): sniff Frequency: Daily Amount used: 3 bags Age of first use: 25 Date of last use: 07/20/19 Cocaine Substance route: Smoking Frequency: 1-2 times per week Amount used: $20 Age of first use: 26 Date of last use: 05/05/19 Admission Physical Exam BHS - Vital Signs Vital Signs: Vital Signs - 24 hr 07/21/19 19:13 Temperature 98.8 F Pulse Rate 80 Respiratory 18 Rate Blood Pressure 104/67 - Physical General Appearance: Yes: Moderate Distress, Tremorous, Irritable, Sweating HEENTM: Yes: Within Normal Limits Respiratory: Yes: Lungs Clear, Normal Breath Sounds, No Respiratory Distress Neck: Yes: Supple Breast: Yes: Within Normal Limits Cardiology: Yes: Regular Rhythm, Regular Rate Abdominal: Yes: Normal Bowel Sounds, Soft Genitourinary: Yes: Within Normal Limits Back: Yes: Normal Inspection Musculoskeletal: Yes: Within Normal Limits Extremities: Yes: Normal Capillary Refill Neurological: Yes: Alert, Normal Mood/Affect Integumentary: Yes: Warm Lymphatic: Yes: Within Normal Limits - Diagnostic (1) Anemia Current Visit: Yes Status: Chronic Qualifiers: Anemia type: unspecified type Qualified Code(s): D64.9 - Anemia, unspecified (2) Depression Current Visit: Yes Status: Chronic Qualifiers: Depression Type: unspecified Qualified Code(s): F32.9 - Major depressive disorder, single episode, unspecified (3) Alcohol dependence with uncomplicated withdrawal Current Visit: Yes Status: Chronic (4) IVDU (intravenous drug user) Current Visit: Yes Status: Chronic (5) Nicotine dependence Current Visit: Yes Status: Chronic Qualifiers: Nicotine product type: cigarettes Substance use status: in withdrawal Qualified Code(s): F17.213 - Nicotine dependence, cigarettes, with withdrawal (6) Anxiety disorder Current Visit: Yes Status: Chronic (7) COPD (chronic obstructive pulmonary disease) Current Visit: No Status: Chronic Qualifiers: COPD type: chronic bronchitis Chronic bronchitis type: unspecified Qualified Code(s): J42 - Unspecified chronic bronchitis (8) Methadone maintenance therapy patient Current Visit: Yes Status: Chronic (9) Opioid dependence on agonist therapy Current Visit: Yes Status: Chronic (10) Endocarditis Current Visit: Yes Status: Resolved (11) HCV (hepatitis C virus) Current Visit: Yes Status: Resolved Qualifiers: Viral hepatitis chronicity: unspecified Hepatic coma status: without hepatic coma Qualified Code(s): B19.20 - Unspecified viral hepatitis C without hepatic coma Comment: Completed Treatment. (12) History of endocarditis Current Visit: Yes Status: Chronic Cleared for Admission S - Detox or Rehab S Level of Care: Medically Managed Detox Regimen/Protocol: Librium Claeared for Rehab Admission: No Breathalyzer - Breathalyzer Breathalyzer: 0 Urine Drug Screen - Test Device Lot number: [id number] Expiration date: 02/23/21 - Control Is test valid?: Yes - Results Drug screen NEGATIVE: No Urine drug screen results: PRIMITIVO-Cocaine, FEN-Fentanyl, MTD-Methadone Inpatient Rehab Admission - Rehab Decision to Admit Inpatient rehab admission?: No
[2019-07-22] MEDS ORDERED: METHOCARBAMOL 500 MG TABLET PO PRN (00:36)
[2019-07-22] MEDS ORDERED: ACETAMINOPHEN 325 MG TABLET (FP) PO PRN ×2 (00:36)
[2019-07-22] MEDS ORDERED: MAGNESIUM CITRATE 300 ML BOTTLE PO PRN (00:36)
[2019-07-22] MEDS ORDERED: MAG HYDROX/AL HYDROX/SIMETH 30 ML UNIT-DOSE CUP PO PRN (00:36)
[2019-07-22] MEDS ORDERED: NICOTINE POLACRILEX 2 MG GUM BUC PRN (00:36)
[2019-07-22] MEDS ORDERED: MELATONIN 5 MG TABLETS PO PRN (00:36)
[2019-07-22] MEDS ORDERED: chlordiazePOXIDE HCL 25 MG CAPSULE PO PRN (00:36)
[2019-07-22] MEDS ORDERED: MAGNESIUM HYDROX 2400MG/30ML ORAL SUSPENSION 30 ML CUP PO PRN (00:36)
[2019-07-22] MEDS ORDERED: BISMUTH SUBSALICYLATE 524 MG/30 ML UD PO PRN (00:36)
[2019-07-22] MEDS ORDERED: hydrOXYzine PAMOATE 25 MG CAPSULE (FP) PO PRN (00:36)
[2019-07-22] MEDS ORDERED: IBUPROFEN 400 MG TABLET (FP) PO PRN (00:36)
[2019-07-22] MEDS ORDERED: MENTHOL/PHENOL 1 EACH UD MM PRN (00:36)
[2019-07-22] MEDS: chlordiazePOXIDE HCL 25 MG CAPSULE PO SCH ×4 (05:36→22:29)
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
[2019-07-22] MEDS: BUDESONIDE/FORMETEROL FUMARATE 160/4.5 mcg INHALER IH SCH ×2 (10:23→22:30)
[2019-07-22] MEDS: NICOTINE 14 MG/24 HOURS TOPICAL PATCH TD SCH (10:23)
[2019-07-22] MEDS: PRENATAL VITAMINS W/ FOLIC ACID TABLET (FP) PO SCH (10:23)
[2019-07-22] MEDS: TIOTROPIUM BROMIDE 2.5 MCG (SPIRIVA) RESPIMAT INHALER IH SCH (10:23)
[2019-07-22] MEDS: CITALOPRAM HYDROBROMIDE 20 MG TABLET (FP) PO SCH (10:23)
[2019-07-22] MEDS ORDERED: METHADONE HCL 40 MG DISPERSABLE TABLET PO ONE (11:30)
--- NOTE | 2019-07-22 13:27 | EKG ---
Test Reason : Blood Pressure : / mmHG Vent. Rate : 074 BPM Atrial Rate : 074 BPM P-R Int : 118 ms QRS Dur : 088 ms QT Int : 398 ms P-R-T Axes : 057 015 069 degrees QTc Int : 441 ms NORMAL SINUS RHYTHM SEPTAL INFARCT (CITED ON OR BEFORE 14-MAR-2019) ABNORMAL ECG WHEN COMPARED WITH ECG OF 08-MAY-2019 19:40, NO SIGNIFICANT CHANGE WAS FOUND Confirmed by WILY LEAL MD ([id number]) on 07/22/2019 1:27:10 PM Referred By: Confirmed By:WILY LEAL MD
--- NOTE | 2019-07-22 13:37 | PN ---
S CIWA - CIWA Score Nausea/Vomitin-No Nausea/No Vomiting Muscle Tremors: 3 Anxiety: 3 Agitation: 3 Paroxysmal Sweats: 3 Orientation: 0-Oriented Tacttile Disturbances: 0-None Auditory Disturbances: 0-None Visual Disturbances: 0-None Headache: 0-None Present CIWA-Ar Total Score: 12 BHS Progress Note (SOAP) Subjective: sweats shakes interrupted sleep body aches irritable Objective: 07/22/19 13:36 Vital Signs Temperature 97.5 F L 07/22/19 09:30 Pulse Rate 79 07/22/19 09:30 Respiratory Rate 18 07/22/19 09:30 Blood Pressure 121/74 07/22/19 09:30 O2 Sat by Pulse Oximetry (%) Laboratory Tests 07/21/19 22:37 POC Urine HCG, Qual Negative aaox3 ambulating no acute distress Assessment: withdrawals Plan: continue detox increase fluids
[2019-07-22] MEDS: traZODone HCL 50 MG TABLET (FP) PO SCH (22:29)
[2019-07-22] MEDS: THIAMINE HCL 100 MG TABLET (FP) PO SCH (22:29)
[2019-07-23] MEDS: chlordiazePOXIDE HCL 25 MG CAPSULE PO SCH ×4 (06:23→22:03)
[2019-07-23] MEDS: METHADONE HCL 40 MG DISPERSABLE TABLET PO SCH (06:23)
[2019-07-23] MEDS: CITALOPRAM HYDROBROMIDE 20 MG TABLET (FP) PO SCH (10:20)
[2019-07-23] MEDS: NICOTINE 14 MG/24 HOURS TOPICAL PATCH TD SCH (10:20)
[2019-07-23] MEDS: PRENATAL VITAMINS W/ FOLIC ACID TABLET (FP) PO SCH (10:20)
[2019-07-23] MEDS: BUDESONIDE/FORMETEROL FUMARATE 160/4.5 mcg INHALER IH SCH ×2 (10:21→22:04)
[2019-07-23] MEDS: TIOTROPIUM BROMIDE 2.5 MCG (SPIRIVA) RESPIMAT INHALER IH SCH (10:21)
[2019-07-23 12:32] LABS: HEMATOCRIT 44.1 % (32.4-45.2); HEMOGLOBIN 14.6 GM/dL (10.7-15.3); MCH 32.9 pg (25.7-33.7); MCHC 33.1 g/dl (32.0-36.0); MEAN CELL VOLUME 99.3 fl (80-96); MEAN PLT VOLUME 8.7 fl (7.5-11.1); PLATELET COUNT 198 K/MM3 (134-434); RBC 4.44 M/mm3 (3.60-5.2)
[2019-07-23 13:02] LABS: ALBUMIN 3.1 g/dl (3.4-5.0); BILIRUBIN,TOTAL 0.4 mg/dL (0.2-1); BLOOD UREA NITROGEN 9.1 mg/dL (7-18); CREATININE 0.7 mg/dL (0.55-1.3); TOT PROT 7.4 g/dl (6.4-8.2)
--- NOTE | 2019-07-23 15:26 | PN ---
[facility] CIWA - CIWA Score Nausea/Vomitin-No Nausea/No Vomiting Muscle Tremors: None Anxiety: 4-Mod. Anxious/Guarded Agitation: 3 Paroxysmal Sweats: 3 Orientation: 0-Oriented Tacttile Disturbances: 2-Mild Itch/Numbness/Burn Auditory Disturbances: 0-None Visual Disturbances: 2-Mild Sensitivity Headache: 0-None Present CIWA-Ar Total Score: 14 S Progress Note (SOAP) Subjective: Body Aches, Sweating, Anxious, Interrupted Sleep. Objective: PATIENT A & O X 3, OBSERVED AMBULATING ON DETOX UNIT UNASSISTED. IN NO ACUTE DISTRESS. 07/23/19 15:27 Vital Signs Temperature 98.7 F 07/23/19 13:32 Pulse Rate 74 07/23/19 13:32 Respiratory Rate 18 07/23/19 13:32 Blood Pressure 95/69 07/23/19 13:32 O2 Sat by Pulse Oximetry (%) Laboratory Tests 07/21/19 07/23/19 07/23/19 22:37 07:30 07:30 WBC 5.0 RBC 4.44 Hgb 14.6 Hct 44.1 D MCV 99.3 H MCH 32.9 MCHC 33.1 RDW 14.0 Plt Count 198 MPV 8.7 Sodium 136 Potassium 4.0 Chloride 103 Carbon Dioxide 29 Anion Gap 4 L BUN 9.1 Creatinine 0.7 Est GFR (CKD-EPI)AfAm 117.09 Est GFR (CKD-EPI)NonAf 101.02 Random Glucose 105 Calcium 9.0 Total Bilirubin 0.4 AST 18 ALT 20 Alkaline Phosphatase 108 Total Protein 7.4 Albumin 3.1 L POC Urine HCG, Qual Negative RPR Titer 07/23/19 07:30 WBC RBC Hgb Hct MCV MCH MCHC RDW Plt Count MPV Sodium Potassium Chloride Carbon Dioxide Anion Gap BUN Creatinine Est GFR (CKD-EPI)AfAm Est GFR (CKD-EPI)NonAf Random Glucose Calcium Total Bilirubin AST ALT Alkaline Phosphatase Total Protein Albumin POC Urine HCG, Qual RPR Titer Nonreactive LABS NOTED. Assessment: 07/23/19 15:27 WITHDRAWAL SYMPTOMS. Plan: CONTINUE DETOX. INCREASE DAILY ORAL WATER INTAKE.
[2019-07-23] MEDS: THIAMINE HCL 100 MG TABLET (FP) PO SCH (22:03)
[2019-07-23] MEDS: traZODone HCL 50 MG TABLET (FP) PO SCH (22:03)
[2019-07-24] MEDS ORDERED: chlordiazePOXIDE HCL 10 MG CAPSULE PO PRN
[2019-07-24] MEDS: METHADONE HCL 40 MG DISPERSABLE TABLET PO SCH (05:32)
[2019-07-24] MEDS: chlordiazePOXIDE HCL 10 MG CAPSULE PO SCH ×2 (05:32→10:13)
[2019-07-24] MEDS: PRENATAL VITAMINS W/ FOLIC ACID TABLET (FP) PO SCH (10:12)
[2019-07-24] MEDS: NICOTINE 14 MG/24 HOURS TOPICAL PATCH TD SCH (10:12)
[2019-07-24] MEDS: TIOTROPIUM BROMIDE 2.5 MCG (SPIRIVA) RESPIMAT INHALER IH SCH (10:12)
[2019-07-24] MEDS: CITALOPRAM HYDROBROMIDE 20 MG TABLET (FP) PO SCH (10:12)
[2019-07-24] MEDS: BUDESONIDE/FORMETEROL FUMARATE 160/4.5 mcg INHALER IH SCH (10:13)
[2019-07-24 13:44] VITALS: BP 93/52; PULSE 85; TEMP 97.6
--- NOTE | 2019-07-24 16:23 | DS ---
[facility] Detox Discharge Summary Admission Date: 07/22/19 Discharge Date: 07/24/19 - History Present History: Alcohol Dependence, Cocaine Dependence, Opioid Dependence, MMTP Additional Comments: Patient decided to leave AMA despite encouragement from staff to complete detox. As per patient, she is not getting enough medication for withdrawal and she prefers to leave. Patient instructed to call [phone] PATRICIA if sick or withdrawal sxs and to see her PCP within 3 days. Pertinent Past History: Chronic bronchitis Anemia Hepatitis C: treated History of endocarditis Alcohol dependence Cocaine dependence Opioid dependence on MMTP - Physical Exam Results Vital Signs: Vital Signs Temperature 97.6 F 07/24/19 13:43 Pulse Rate 85 07/24/19 13:43 Respiratory Rate 18 07/24/19 13:43 Blood Pressure 93/52 L 07/24/19 13:43 O2 Sat by Pulse Oximetry (%) Pertinent Admission Physical Exam Findings: Withdrawal sxs Laboratory Tests 07/21/19 07/23/19 07/23/19 22:37 07:30 07:30 WBC 5.0 RBC 4.44 Hgb 14.6 Hct 44.1 D MCV 99.3 H MCH 32.9 MCHC 33.1 RDW 14.0 Plt Count 198 MPV 8.7 Sodium 136 Potassium 4.0 Chloride 103 Carbon Dioxide 29 Anion Gap 4 L BUN 9.1 Creatinine 0.7 Est GFR (CKD-EPI)AfAm 117.09 Est GFR (CKD-EPI)NonAf 101.02 Random Glucose 105 Calcium 9.0 Total Bilirubin 0.4 AST 18 ALT 20 Alkaline Phosphatase 108 Total Protein 7.4 Albumin 3.1 L POC Urine HCG, Qual Negative RPR Titer 07/23/19 07:30 WBC RBC Hgb Hct MCV MCH MCHC RDW Plt Count MPV Sodium Potassium Chloride Carbon Dioxide Anion Gap BUN Creatinine Est GFR (CKD-EPI)AfAm Est GFR (CKD-EPI)NonAf Random Glucose Calcium Total Bilirubin AST ALT Alkaline Phosphatase Total Protein Albumin POC Urine HCG, Qual RPR Titer Nonreactive Labs reviewed - Medication Discharge Medications: Ambulatory Orders Budesonide/Formeterol Fumarate [SYMBICORT 160/4.5mcg -] 1 inh PO BID 03/14/19 Citalopram Hydrobromide [Citalopram HBr] 40 mg PO HS 03/14/19 Tiotropium [place] [Spiriva] 1 inh PO DAILY 03/14/19 - Diagnosis (1) Alcohol dependence with uncomplicated withdrawal Status: Acute (2) Cocaine abuse, uncomplicated Status: Acute (3) Anemia Status: Chronic Qualifiers: Anemia type: unspecified type Qualified Code(s): D64.9 - Anemia, unspecified (4) Anxiety and depression Status: Chronic (5) Nicotine dependence Status: Chronic Qualifiers: Nicotine product type: cigarettes Substance use status: in withdrawal Qualified Code(s): F17.213 - Nicotine dependence, cigarettes, with withdrawal (6) Opioid dependence on agonist therapy Status: Acute (7) HCV (hepatitis C virus) Status: Resolved Qualifiers: Viral hepatitis chronicity: unspecified Hepatic coma status: without hepatic coma Qualified Code(s): B19.20 - Unspecified viral hepatitis C without hepatic coma (8) History of endocarditis Status: Resolved - AMA Did Patient Leave Against Medical Advice: Yes (Instructed to call 911 STAT if sick or withdrawal sxs)
[2019-07-25] MEDS ORDERED: chlordiazePOXIDE HCL 10 MG CAPSULE PO SCH (05:00)
[2019-07-26] MEDS ORDERED: chlordiazePOXIDE HCL 10 MG CAPSULE PO ONE (05:00)
== END 2019-07-24 14:36 | disposition left against medical advice (07) | DRG 770 ==
LOC: YASAS 16:19 → Y6N 07-22 00:56
PROVIDERS: ADMIT Allergy & Immunology; ATTEND Allergy & Immunology
PROC: HZ2ZZZZ Detoxification Services for Substance Abuse Treatment (ICD-10-PCS; principal; 2019-07-22)
DX: F10.230 Alcohol dependence with withdrawal, uncomplicated (principal); F11.20 Opioid dependence, uncomplicated; F14.10 Cocaine abuse, uncomplicated; F17.210 Nicotine dependence, cigarettes, uncomplicated; F41.9 Anxiety disorder, unspecified; F32.9 Major depressive disorder, single episode, unspecified; F31.9 Bipolar disorder, unspecified; F39 Unspecified mood [affective] disorder; F19.24 Other psychoactive substance dependence with psychoactive substance-induced mood disorder; F19.282 Other psychoactive substance dependence with psychoactive substance-induced sleep disorder; D64.9 Anemia, unspecified; B19.20 Unspecified viral hepatitis C without hepatic coma; J42 Unspecified chronic bronchitis; Z88.8 Allergy status to other drugs, medicaments and biological substances
CPT/HCPCS: 36415; 80053; 81025; 85027; 86593; 93005; 93010

== ENCOUNTER 2019-09-10 13:38 | Inpatient (IN) | payer OTHER ==
--- NOTE | 2019-09-10 17:15 | BHS.RME ---
Substance Use & Tx History - Substance Use History Alcohol Substance amount: alcohol- 12 pack of beer/day, no h/o seizures since age 19 Frequency of use: Daily Opiates (Heroin) Substance amount: methadone 40mg and using heroin 4 bags/day Frequency of use: Daily Substance route: Injection (ex: intravenous or skin popping) Date of Last Use: 09/10/19 Cocaine (Crack) Substance amount: $30 each time Frequency of use: Less than 3 times per week Date of Last Use: 09/09/19 - Last Treatment Date of last treatment: 06/2019 Treatment type: Substance Use Disorder (JESÚS) Where was last treatment: Detox Physical/Psych/Mental Status - Behavior General Behavior: Increased activity (restlessness, agitation) Eye Contact: Normal - Cooperativeness Cooperativeness: Cooperative - Thinking Thought Processes: Goal Directed - Physical Health Problems Is patient presently having any pain?: Yes (denies pain) Does patient presently have any injuries (include location): No (pt states twisted ankle in waiting room- stood up when foot was asleep- ) CIWA Nausea/Vomitin-Mild Nausea/No Vomiting Muscle Tremors: 3 Anxiety: 3 Agitation: 2 Paroxysmal Sweats: 1-Minimal Palms Moist Orientation: 0-Oriented Tacttile Disturbances: 1-Very Mild Itch/Numbness Auditory Disturbances: 0-None Visual Disturbances: 0-None Headache: 1-Very Mild CIWA-Ar Total Score: 12 Treatment Recommendation - Level of Care Level of Care: Acute Medical (admit for alcohol detox, pt on OTP methadone 40mg)
[2019-09-10 19:25] VITALS: BMI 19.5
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
[2019-09-10] MEDS ORDERED: MAG HYDROX/AL HYDROX/SIMETH 30 ML UNIT-DOSE CUP PO PRN (20:10)
[2019-09-10] MEDS ORDERED: MENTHOL/PHENOL 1 EACH UD MM PRN (20:10)
[2019-09-10] MEDS ORDERED: BISMUTH SUBSALICYLATE 524 MG/30 ML UD PO PRN (20:10)
[2019-09-10] MEDS ORDERED: MAGNESIUM HYDROX 2400MG/30ML ORAL SUSPENSION 30 ML CUP PO PRN (20:10)
[2019-09-10] MEDS ORDERED: chlordiazePOXIDE HCL 10 MG CAPSULE PO PRN (20:10)
[2019-09-10] MEDS ORDERED: IBUPROFEN 400 MG TABLET (FP) PO PRN (20:10)
[2019-09-10] MEDS ORDERED: chlordiazePOXIDE HCL 25 MG CAPSULE PO ONE (20:10)
[2019-09-10] MEDS ORDERED: ACETAMINOPHEN 325 MG TABLET (FP) PO PRN ×2 (20:10)
[2019-09-10] MEDS ORDERED: MELATONIN 5 MG TABLETS PO PRN (20:10)
[2019-09-10] MEDS ORDERED: MAGNESIUM CITRATE 300 ML BOTTLE PO PRN (20:10)
[2019-09-10] MEDS ORDERED: NICOTINE POLACRILEX 4 MG GUM BUC PRN (20:10)
[2019-09-10] MEDS ORDERED: METHOCARBAMOL 500 MG TABLET PO PRN (20:10)
[2019-09-10] MEDS ORDERED: ALBUTEROL SO4 2.5/IPRATROPIUM 0.5 INH SOL 3 ML VIAL.NEB. NEB PRN (20:36)
[2019-09-10] MEDS: THIAMINE HCL 100 MG TABLET (FP) PO SCH (21:15)
[2019-09-10] MEDS: BACITRACIN 0.9 GM PACKET TP SCH (21:15)
[2019-09-10] MEDS: chlordiazePOXIDE HCL 25 MG CAPSULE PO SCH (21:15)
[2019-09-11] MEDS: chlordiazePOXIDE HCL 25 MG CAPSULE PO SCH ×3 (05:57→22:15)
[2019-09-11] MEDS: BACITRACIN 0.9 GM PACKET TP SCH ×3 (06:34→22:14)
--- NOTE | 2019-09-11 09:21 | PN ---
S CIWA - CIWA Score Nausea/Vomitin-Mild Nausea/No Vomiting Muscle Tremors: 4-Moderate,w/Arms Extend Anxiety: 3 Agitation: 1-Slight > Activity Paroxysmal Sweats: 2 Orientation: 0-Oriented Tacttile Disturbances: 0-None Auditory Disturbances: 0-None Visual Disturbances: 1-Very Mild Sensitivity Headache: 3-Moderate CIWA-Ar Total Score: 15 BHS Progress Note (SOAP) Subjective: 49 years old female admitted on 09/10/19 for alcohol withdrawal sx management treating with librium detox regiment patient is in the methadone maintenance program positive methadone Utox methadone dosage waiting to be verified Ms Morillo ate breakfast and tolerated food and fluid well resting in bed limited conversation with staff Objective: 09/11/19 09:21 Vital Signs Temperature 97.4 F L 09/11/19 07:33 Pulse Rate 78 09/11/19 07:33 Respiratory Rate 17 09/11/19 07:33 Blood Pressure 102/74 09/11/19 07:33 O2 Sat by Pulse Oximetry (%) 09/11/19 09:21 lab pending Assessment: 09/11/19 09:21 alcohol withdrawal Plan: librium regiment
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
[2019-09-11] MEDS ORDERED: METHADONE HCL 40 MG DISPERSABLE TABLET PO ONE (10:54)
[2019-09-11] MEDS ORDERED: METHADONE HCL 10 MG TABLET PO ONE (10:54)
[2019-09-11] MEDS: PRENATAL VITAMINS W/ FOLIC ACID TABLET (FP) PO SCH (11:02)
[2019-09-11] MEDS: NICOTINE 21 MG/24 HOURS TOPICAL PATCH TD SCH (11:02)
[2019-09-11 11:45] LABS: HEMATOCRIT 41.3 % (32.4-45.2); MCH 32.8 pg (25.7-33.7); MCHC 33.8 g/dl (32.0-36.0); MEAN CELL VOLUME 96.9 fl (80-96); MEAN PLT VOLUME 8.8 fl (7.5-11.1); PLATELET COUNT 251 K/MM3 (134-434); RBC 4.26 M/mm3 (3.60-5.2); RDW 14.3 % (11.6-15.6); WHITE BLOOD COUNT 5.7 K/mm3 (4.0-10.0)
[2019-09-11 11:50] LABS: ALBUMIN 2.8 g/dl (3.4-5.0); BILIRUBIN,TOTAL 0.3 mg/dL (0.2-1); BLOOD UREA NITROGEN 11.1 mg/dL (7-18); CALCIUM 8.7 mg/dL (8.5-10.1); CREATININE 0.8 mg/dL (0.55-1.3); POTASSIUM 3.9 mmol/L (3.5-5.1)
[2019-09-11] MEDS: hydrOXYzine PAMOATE 25 MG CAPSULE (FP) PO PRN (20:53)
[2019-09-11] MEDS: CITALOPRAM HYDROBROMIDE 10 MG TABLET PO SCH (22:15)
[2019-09-11] MEDS: THIAMINE HCL 100 MG TABLET (FP) PO SCH (22:15)
[2019-09-11] MEDS: traZODone HCL 50 MG TABLET (FP) PO SCH (22:15)
[2019-09-12] MEDS ORDERED: TRIMETHOBENZAMIDE HCL 200MG/2ML INJ IM PRN (04:08)
[2019-09-12] MEDS ORDERED: METHADONE HCL 40 MG DISPERSABLE TABLET PO ONE (05:00)
[2019-09-12] MEDS: BACITRACIN 0.9 GM PACKET TP SCH ×3 (05:43→22:22)
[2019-09-12] MEDS: chlordiazePOXIDE 5 MG CAPSULE PO SCH ×3 (07:18→22:22)
[2019-09-12] MEDS ORDERED: cloNIDine HCL 0.1 MG TABLET PO ONE (07:45)
--- NOTE | 2019-09-12 10:09 | PN ---
S CIWA - CIWA Score Nausea/Vomitin (received tigan IM around 4 am tolerated 6am methadone 40mg well) Muscle Tremors: 1-None Visible, but [place] Anxiety: 3 Agitation: 1-Slight > Activity Paroxysmal Sweats: 2 Orientation: 1-Uncertain about Date Tacttile Disturbances: 0-None Auditory Disturbances: 0-None Visual Disturbances: 0-None Headache: 2-Mild CIWA-Ar Total Score: 12 S Progress Note (SOAP) Subjective: 49 years old female admitted on 09/10/19 for alcohol withdrawal sx management treating with librium detox regiment patient is taking methadone 40mg po daily administered by the methadone maintenance program positive Fen Utox methadone verified by take home bottle Objective: 09/12/19 10:10 Vital Signs Temperature 96.4 F L 09/12/19 08:54 Pulse Rate 67 09/12/19 08:54 Respiratory Rate 18 09/12/19 08:54 Blood Pressure 160/84 09/12/19 08:54 O2 Sat by Pulse Oximetry (%) Laboratory Last Values WBC 5.7 K/mm3 (4.0-10.0) 09/11/19 07:25 RBC 4.26 M/mm3 (3.60-5.2) 09/11/19 07:25 Hgb 14.0 GM/dL (10.7-15.3) 09/11/19 07:25 Hct 41.3 % (32.4-45.2) 09/11/19 07:25 MCV 96.9 fl (80-96) H 09/11/19 07:25 MCH 32.8 pg (25.7-33.7) 09/11/19 07:25 MCHC 33.8 g/dl (32.0-36.0) 09/11/19 07:25 RDW 14.3 % (11.6-15.6) 09/11/19 07:25 Plt Count 251 K/MM3 (134-434) D 09/11/19 07:25 MPV 8.8 fl (7.5-11.1) 09/11/19 07:25 Sodium 139 mmol/L (136-145) 09/11/19 07:25 Potassium 3.9 mmol/L (3.5-5.1) 09/11/19 07:25 Chloride 105 mmol/L (98-107) 09/11/19 07:25 Carbon Dioxide 29 mmol/L (21-32) 09/11/19 07:25 Anion Gap 5 MMOL/L (8-16) L 09/11/19 07:25 BUN 11.1 mg/dL (7-18) 09/11/19 07:25 Creatinine 0.8 mg/dL (0.55-1.3) 09/11/19 07:25 Est GFR (CKD-EPI)AfAm 98.93 09/11/19 07:25 Est GFR (CKD-EPI)NonAf 85.36 09/11/19 07:25 Random Glucose 128 mg/dL (74-106) H 09/11/19 07:25 Calcium 8.7 mg/dL (8.5-10.1) 09/11/19 07:25 Total Bilirubin 0.3 mg/dL (0.2-1) 09/11/19 07:25 AST 17 U/L (15-37) 09/11/19 07:25 ALT 16 U/L (13-61) 09/11/19 07:25 Alkaline Phosphatase 95 U/L (45-117) 09/11/19 07:25 Total Protein 7.0 g/dl (6.4-8.2) 09/11/19 07:25 Albumin 2.8 g/dl (3.4-5.0) L 09/11/19 07:25 RPR Titer Nonreactive (NONREACTIVE) 09/11/19 07:25 lb noted bp elevation begin lisinopril 10 mg po bid Assessment: 09/12/19 10:11 alcohol withdrawal Plan: librium regiment
[2019-09-12] MEDS ORDERED: cloNIDine HCL 0.1 MG TABLET PO PRN (10:11)
[2019-09-12] MEDS: NICOTINE 21 MG/24 HOURS TOPICAL PATCH TD SCH (10:31)
[2019-09-12] MEDS: PRENATAL VITAMINS W/ FOLIC ACID TABLET (FP) PO SCH (10:31)
[2019-09-12] MEDS: LISINOPRIL 10 MG TABLET (FP) PO SCH ×2 (10:31→22:22)
[2019-09-12] MEDS: THIAMINE HCL 100 MG TABLET (FP) PO SCH (22:21)
[2019-09-12] MEDS: CITALOPRAM HYDROBROMIDE 10 MG TABLET PO SCH (22:22)
[2019-09-12] MEDS: hydrOXYzine PAMOATE 25 MG CAPSULE (FP) PO PRN (22:23)
[2019-09-12] MEDS: traZODone HCL 50 MG TABLET (FP) PO SCH (22:23)
[2019-09-13] MEDS ORDERED: chlordiazePOXIDE HCL 10 MG CAPSULE PO PRN
[2019-09-13] MEDS: chlordiazePOXIDE HCL 10 MG CAPSULE PO SCH ×3 (05:44→23:20)
[2019-09-13] MEDS: BACITRACIN 0.9 GM PACKET TP SCH ×3 (05:45→23:21)
[2019-09-13] MEDS ORDERED: METHADONE HCL 40 MG DISPERSABLE TABLET PO SCH (08:00)
[2019-09-13] MEDS: NICOTINE 21 MG/24 HOURS TOPICAL PATCH TD SCH (10:55)
[2019-09-13] MEDS: PRENATAL VITAMINS W/ FOLIC ACID TABLET (FP) PO SCH (10:55)
[2019-09-13] MEDS: LISINOPRIL 10 MG TABLET (FP) PO SCH ×2 (10:55→14:39)
--- NOTE | 2019-09-13 11:39 | PN ---
S CIWA - CIWA Score Nausea/Vomitin-No Nausea/No Vomiting Muscle Tremors: 2 Anxiety: 2 Agitation: 1-Slight > Activity Paroxysmal Sweats: 1-Minimal Palms Moist Orientation: 0-Oriented Tacttile Disturbances: 0-None Auditory Disturbances: 0-None Visual Disturbances: 1-Very Mild Sensitivity Headache: 0-None Present CIWA-Ar Total Score: 7 BHS Progress Note (SOAP) Subjective: 49 years old female admitted on 09/10/19 for alcohol withdrawal sx management treating with librium detox regiment around 9 am fell on hallway witnessed fall on right buttock patient up and walking immediately independently good eye contact speech clearly no lost of consciousness right gluteal skin intact no redness no swell none tenderness around 12 pm patient fell in room unwitnessed left inferior perietal avani 2 cm scalp laceration minimum bleed with pressure slurred speech no eye 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 ER evaluation fall protocol #1 hold lisinopril information provided to ER Dr Kumar proposition: may return continue alcohol detox patient received librium 10 mg around 5 am methadone 40mg around 6 am Objective: 09/13/19 12:02 Vital Signs Temperature 97.0 F L 09/13/19 11:47 Pulse Rate 77 09/13/19 11:47 Respiratory Rate 18 09/13/19 11:47 Blood Pressure 108/74 09/13/19 11:47 O2 Sat by Pulse Oximetry (%) Laboratory Last Values WBC 5.7 K/mm3 (4.0-10.0) 09/11/19 07:25 RBC 4.26 M/mm3 (3.60-5.2) 09/11/19 07:25 Hgb 14.0 GM/dL (10.7-15.3) 09/11/19 07:25 Hct 41.3 % (32.4-45.2) 09/11/19 07:25 MCV 96.9 fl (80-96) H 09/11/19 07:25 MCH 32.8 pg (25.7-33.7) 09/11/19 07:25 MCHC 33.8 g/dl (32.0-36.0) 09/11/19 07:25 RDW 14.3 % (11.6-15.6) 09/11/19 07:25 Plt Count 251 K/MM3 (134-434) D 09/11/19 07:25 MPV 8.8 fl (7.5-11.1) 09/11/19 07:25 Sodium 139 mmol/L (136-145) 09/11/19 07:25 Potassium 3.9 mmol/L (3.5-5.1) 09/11/19 07:25 Chloride 105 mmol/L (98-107) 09/11/19 07:25 Carbon Dioxide 29 mmol/L (21-32) 09/11/19 07:25 Anion Gap 5 MMOL/L (8-16) L 09/11/19 07:25 BUN 11.1 mg/dL (7-18) 09/11/19 07:25 Creatinine 0.8 mg/dL (0.55-1.3) 09/11/19 07:25 Est GFR (CKD-EPI)AfAm 98.93 09/11/19 07:25 Est GFR (CKD-EPI)NonAf 85.36 09/11/19 07:25 Random Glucose 128 mg/dL (74-106) H 09/11/19 07:25 Calcium 8.7 mg/dL (8.5-10.1) 09/11/19 07:25 Total Bilirubin 0.3 mg/dL (0.2-1) 09/11/19 07:25 AST 17 U/L (15-37) 09/11/19 07:25 ALT 16 U/L (13-61) 09/11/19 07:25 Alkaline Phosphatase 95 U/L (45-117) 09/11/19 07:25 Total Protein 7.0 g/dl (6.4-8.2) 09/11/19 07:25 Albumin 2.8 g/dl (3.4-5.0) L 09/11/19 07:25 RPR Titer Nonreactive (NONREACTIVE) 09/11/19 07:25 lab noted Assessment: 09/13/19 12:02 alcohol withdrawal Plan: librium regiment
[2019-09-13 11:54] VITALS: TEMP 97
[2019-09-13 12:27] VITALS: BP 106/69; PULSE 67
[2019-09-13] MEDS: CITALOPRAM HYDROBROMIDE 10 MG TABLET PO SCH (23:21)
[2019-09-13] MEDS: THIAMINE HCL 100 MG TABLET (FP) PO SCH (23:21)
[2019-09-13] MEDS: traZODone HCL 50 MG TABLET (FP) PO SCH (23:21)
[2019-09-14] MEDS ORDERED: chlordiazePOXIDE HCL 10 MG CAPSULE PO ONE (05:00)
== END 2019-09-14 07:42 | disposition short-term general hospital (02) | DRG 773 ==
LOC: YASAS 13:38 → Y3N 20:17
PROVIDERS: ADMIT Allergy & Immunology; ATTEND Allergy & Immunology
PROC: HZ2ZZZZ Detoxification Services for Substance Abuse Treatment (ICD-10-PCS; principal; 2019-09-10)
DX: F10.230 Alcohol dependence with withdrawal, uncomplicated (principal); F11.23 Opioid dependence with withdrawal; F14.10 Cocaine abuse, uncomplicated; F17.210 Nicotine dependence, cigarettes, uncomplicated; F19.282 Other psychoactive substance dependence with psychoactive substance-induced sleep disorder; F19.24 Other psychoactive substance dependence with psychoactive substance-induced mood disorder; F31.9 Bipolar disorder, unspecified; F41.9 Anxiety disorder, unspecified; I10 Essential (primary) hypertension; J42 Unspecified chronic bronchitis; D64.9 Anemia, unspecified; S01.01XA Laceration without foreign body of scalp, initial encounter; W19.XXXA Unspecified fall, initial encounter; Z91.81 History of falling; Y93.89 Activity, other specified; Y92.230 Patient room in hospital as the place of occurrence of the external cause; Y99.8 Other external cause status; Z86.19 Personal history of other infectious and parasitic diseases; Z86.79 Personal history of other diseases of the circulatory system; Z88.8 Allergy status to other drugs, medicaments and biological substances
CPT/HCPCS: 36415; 80053; 85027; 86593; J0735

== ENCOUNTER 2019-09-13 12:56 | Observation (INO) | payer OTHER ==
[2019-09-13] MEDS ORDERED: SODIUM CHLORIDE 500 ML IV STA (14:34)
[2019-09-13 14:51] VITALS: TEMP 97; BMI 32.3
--- NOTE | 2019-09-13 15:17 | PDOC ---
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 Pt at [facility] for alcohol withdrawal, to be DC tmr. Pt reports walking in rehab today and woke up on the floor 2 separate occasions with the nursing staff assisting her. Pt hit her head with a small lac to the right posterior occiput, bleeding stopped with light pressure. Pt unsure how long she was unconscious for, denies CP, palpitations, SOB prior to or after the fall, denies JULIAN, changes in vision, weakness/sensory changes to 1 side, N/V/ F/C, neck pain, Abdominal pain, changes in bowel or bladder habits. Pt never had similar symptoms in the past. Last tetanus unknown Past History - Past Medical History Allergies/Adverse Reactions: Allergies Allergy/AdvReac Type Severity Reaction Status Date / Time tramadol [From Ultram] Allergy Severe throat Verified 09/13/19 14:51 swelling Home Medications: Ambulatory Orders Budesonide/Formeterol Fumarate [SYMBICORT 160/4.5mcg -] 1 inh PO BID 03/14/19 Citalopram Hydrobromide [Citalopram HBr] 40 mg PO HS 03/14/19 Tiotropium [place] [Spiriva] 1 inh PO DAILY 03/14/19 Methadone (Detox) [Dolophine -] 40 mg PO DAILY 09/10/19 Anemia: Yes (Has taken Iron supplement in past.) Asthma: No Cancer: No Cardiac Disorders: Yes (HX/O ENDOCARDITIS, 2015.) CVA: No COPD: Yes (Chronic Bronchitis.) CHF: No Dementia: No Diabetes: No GI Disorders: Yes (UMBILICAL HERNIA WITH INTERMITTENT PAIN) Disorders: No HTN: No Hypercholesterolemia: No Kidney Stones: No Liver Disease: Yes (HEP C, TX'd WITH MAVIROC, COMPLETED.) Seizures: Yes (ABOUT 6 YEARS AGO) Thyroid Disease: No - Surgical History Abdominal Surgery: No Appendectomy: No Cardiac Surgery: No Cholecystectomy: No Lung Surgery: No Neurologic Surgery: No Orthopedic Surgery: No - Reproductive History PID: No - Psycho Social/Smoking Cessation Hx Smoking History: Current every day smoker Have you smoked in the past 12 months: No Number of Cigarettes Smoked Daily: 20 Cigars Per Day: 0 Information on smoking cessation initiated: No 'Breaking Loose' booklet given: 09/10/19 Hx Alcohol Use: Yes Drug/Substance Use Hx: Yes Substance Use Type: Alcohol, Cocaine, Heroin, Prescribed Hx Substance Use Treatment: Yes Review of Systems - Review of Systems Constitutional: No: Chills, Fever Respiratory: No: Shortness of Breath Cardiac (ROS): No: Chest Pain ABD/GI: No: Constipated, Diarrhea, Nausea, Vomiting : No: Burning, Dysuria, Frequency, Flank Pain Musculoskeletal: No: Back Pain Neurological: No: Headache, Numbness, Paresthesia, Weakness, Unsteady Gait, Ataxia *Physical Exam - Vital Signs Last Vital Signs Temp Pulse Resp BP Pulse Ox 97 F L 77 18 108/74 96 09/13/19 13:05 09/13/19 13:05 09/13/19 13:05 09/13/19 13:05 09/13/19 13:05 - Physical Exam General Appearance: Yes: Nourished, Appropriately Dressed. No: Apparent Distress HEENT: positive: EOMI, ALLISON, Normal ENT Inspection, TMs Normal, Pharynx Normal Neck: positive: Supple. negative: Carotid bruit Respiratory/Chest: positive: Lungs Clear, Normal Breath Sounds. negative: Respiratory Distress, Accessory Muscle Use, Rapid RR, Crackles, Rales, Rhonchi, Stridor, Wheezing Cardiovascular: positive: Regular Rhythm, Regular Rate, S1, S2. negative: Edema , JVD, Murmur Vascular Pulses: Dorsalis-Pedis (R): 4+, Doralis-Pedis (L): 4+ Gastrointestinal/Abdominal: positive: Flat, Soft. 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 negative: Facial Droop, Sensory Deficit, Finger to Nose, Confused, Disoriented ED Treatment Course - LABORATORY CBC & Chemistry Diagram: 09/13/19 15:00 09/13/19 15:00 - RADIOLOGY Radiology Studies Ordered: Category Date Time Status CHEST X-RAY PORTABLE* [RAD] Stat Radiology 09/13/19 14:35 Ordered Medical Decision Making - Medical Decision Making 09/13/19 19:52 49 yo female pmh ETOH abuse, heroin abuse (on 40 mg methadone daily) COPD, infective endocarditis 2014 after IVDU (no valvular repair) presenting from [facility] for 2 falls today[facility] tmr. Pt reports walking in rehab today and woke up on the floor 2 separate occasions with the nursing staff assisting her. Pt hit her head with a small lac to the right posterior occiput, bleeding stopped with light pressure. Pt unsure how long she was unconscious for, denies CP, palpitations, SOB prior to or after the fall, denies JULIAN, changes in vision, weakness/sensory changes to 1 side, N/V/ F/C, neck pain, Abdominal pain, changes in bowel or bladder habits. Pt never had similar symptoms in the past. vitals WNL Continous cardiac monitoring and EKG along with Cardiac labs done immediately Echo ordered due to infective endocarditis hx in the ED, pending results EKG NSR without acute ischemic changes Pt admitted to attending that she had intermittent SOB, D dimer added to labs. D dimer mildly elevated, pending CTA for r/o PE Head and C spine neg for CVA, fractures or acute injury Labs WNL Case discussed with Dr. Qureshi, pt admitted for syncope and collapse Tele admission Discharge - Discharge Information Problems reviewed: Yes Clinical Impression/Diagnosis: Syncope and collapse Condition: Stable - Admission Yes - Follow up/Referral - Patient Discharge Instructions - Post Discharge Activity
[2019-09-13 15:50] LABS: BASO % 0.5 % (0-2.0); EOS % 0.6 % (0-4.5); HEMATOCRIT 46.9 % (32.4-45.2); HEMOGLOBIN 15.8 GM/dL (10.7-15.3); LYMPH % 33.2 % (8-40); MCH 32.2 pg (25.7-33.7); MCHC 33.7 g/dl (32.0-36.0); MEAN CELL VOLUME 95.5 fl (80-96); MEAN PLT VOLUME 8.5 fl (7.5-11.1); MONO % 9.4 % (3.8-10.2); NEUT % 56.3 % (42.8-82.8); PLATELET COUNT 330 K/MM3 (134-434); RBC 4.91 M/mm3 (3.60-5.2); RDW 13.9 % (11.6-15.6)
[2019-09-13 16:02] LABS: INR 0.95 (0.83-1.09); PROTHROMBIN TIME (PATIENT) 11.2 SEC (9.7-13.0)
[2019-09-13 16:05] LABS: ACTIVATED PTT 37.1 SECONDS (25.2-36.5)
--- NOTE | 2019-09-13 16:12 | EKG ---
Test Reason : Blood Pressure : / mmHG Vent. Rate : 067 BPM Atrial Rate : 067 BPM P-R Int : 106 ms QRS Dur : 080 ms QT Int : 438 ms P-R-T Axes : 057 015 067 degrees QTc Int : 462 ms SINUS RHYTHM WITH SHORT NE OTHERWISE NORMAL ECG WHEN COMPARED WITH ECG OF 22-JUL-2019 01:04, CRITERIA FOR SEPTAL INFARCT ARE NO LONGER PRESENT Confirmed by MD EUGENIO, PARMINDER ([id number]) on 09/13/2019 4:12:20 PM Referred By: Confirmed By:PARMINDER BECKER MD
[2019-09-13 16:27] LABS: ALBUMIN 3.2 g/dl (3.4-5.0); ALK PHOS 98 U/L (45-117); ANION GAP 8 MMOL/L (8-16); BILIRUBIN,TOTAL 0.6 mg/dL (0.2-1); BLOOD UREA NITROGEN 15.8 mg/dL (7-18); CALCIUM 9.4 mg/dL (8.5-10.1); CHLORIDE 99 mmol/L (98-107); CO2 28 mmol/L (21-32); CREATININE 0.8 mg/dL (0.55-1.3); GLUCOSE,RANDOM 76 mg/dL (74-106); MAGNESIUM 2.3 mg/dL (1.8-2.4); SGOT/AST 32 U/L (15-37); SGPT/ALT 20 U/L (13-61); SODIUM 135 mmol/L (136-145); TOT PROT 8.1 g/dl (6.4-8.2)
--- NOTE | 2019-09-13 19:21 | PN ---
Teaching Attending Note Name of Resident: Elis Albarran ATTENDING PHYSICIAN STATEMENT I saw and evaluated the patient. I reviewed the resident's note and discussed the case with the resident. I agree with the resident's findings and plan as documented. SUBJECTIVE: 49 Y/O F W w COPD, previous IVDU with HX of endocaditis in 2014, follows up in [facility], active smoker( smokes 1 pack per week), she was in detox for the past 3 days, the night prior to admission and on the morning of admission she has N/V and decreased Po intake, was given IM shot for nausea, as well as this morning as her BP 150/110 she was given clonidine. Also has HX of L carotid tumor S/P surgical interventio. States since then she has been having lightheadedness when she stands up and had 2 episodes of syncope with LOC with no other cardiopulmonary complaints, she states that for the past 3 weeks has had couple of episodes of palpitation which were not related to her activity and where like fluttering and she had no other cardiopulmonary complaints with it but that did not happen this morning. she had episode of presyncope and lightheadedness this morning prior to the final fall and syncope all when she stands up and walks. OBJECTIVE: middle age F in no distress, thin, dry mucosa CVS:S1S2, regular, could not appreciated any murmurs CTAB Abd:bs+ nt/nd has no carotid bruits in exam has skin lesions which she states that she pick on her skin No recent travel , no prolong episodes of immobility CBCD WBC 8.0 K/mm3 (4.0-10.0) 09/13/19 15:00 RBC 4.91 M/mm3 (3.60-5.2) 09/13/19 15:00 Hgb 15.8 GM/dL (10.7-15.3) H 09/13/19 15:00 Hct 46.9 % (32.4-45.2) H 09/13/19 15:00 MCV 95.5 fl (80-96) 09/13/19 15:00 MCHC 33.7 g/dl (32.0-36.0) 09/13/19 15:00 RDW 13.9 % (11.6-15.6) 09/13/19 15:00 Plt Count 330 K/MM3 (134-434) D 09/13/19 15:00 MPV 8.5 fl (7.5-11.1) 09/13/19 15:00 CMP Sodium 135 mmol/L (136-145) L 09/13/19 15:00 Potassium 5.0 mmol/L (3.5-5.1) 09/13/19 15:00 Chloride 99 mmol/L (98-107) 09/13/19 15:00 Carbon Dioxide 28 mmol/L (21-32) 09/13/19 15:00 Anion Gap 8 MMOL/L (8-16) 09/13/19 15:00 BUN 15.8 mg/dL (7-18) 09/13/19 15:00 Creatinine 0.8 mg/dL (0.55-1.3) 09/13/19 15:00 Calcium 9.4 mg/dL (8.5-10.1) 09/13/19 15:00 Total Bilirubin 0.6 mg/dL (0.2-1) 09/13/19 15:00 AST 32 U/L (15-37) 09/13/19 15:00 ALT 20 U/L (13-61) 09/13/19 15:00 Alkaline Phosphatase 98 U/L (45-117) 09/13/19 15:00 Total Protein 8.1 g/dl (6.4-8.2) 09/13/19 15:00 Albumin 3.2 g/dl (3.4-5.0) L 09/13/19 15:00 ASSESSMENT AND PLAN: episode of syncope in Etoh abuser, HX of endocartitis, on MMT, COPD and palpitation: the way she describes it it is orhtosthatic but considering her Extensive risk factors will have her get TTE and she needs follow up with EP for prolong monitoring Also will keep Mg>2 and K in Nl range rest of the management per HS note
[2019-09-13] MEDS ORDERED: DIPHTH,PERTUSS(ACELL),TET 0.5 ML DISP.SYRIN IM ONE ×2 (19:50→20:02)
[2019-09-13] MEDS ORDERED: ALBUTEROL SO4 2.5/IPRATROPIUM 0.5 INH SOL 3 ML VIAL.NEB. NEB PRN (20:00)
--- NOTE | 2019-09-13 20:04 | HP ---
CHIEF COMPLAINT: syncope PCP: @ [facility] HISTORY OF PRESENT ILLNESS: 49 y.o. F PMH polysubstance abuse (IV & inhalation), infective endocarditis in 2015, COPD, anxiety, nicotine dependence presenting from [facility] (currently on day #4 detox w/ librium) for 2 syncopal episodes. The patient says she has never syncopized prior to these events. Patient states she stood up, walked about 7 steps, became lightheaded and does not remember what happened next; [facility] staff found her down on the ground w/ occipital scalp bleeding. Endorses urinary incontinence during syncopal episode, no tongue biting. She states prior to episode she noticed palpitations which she has also been having intermittently over the last few weeks. Also endorses decreased PO intake over the last day. 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 and has been following up regularly since her episode of IE in 2014. + palpitations, lightheadedness, occipital headache, fevers reported at home last week, NBNB vomiting x 2 yesterday, chills, myalgias in buttocks s/p fall Denies chest pain/ SOB/ abd pain/ diaphoresis/ weight changes/ urinary or bowel changes ER course was notable for: (1) CT head neg for acute pathology (2) negative orthostatics (3) Recent Travel: denies PAST MEDICAL HISTORY: as per hpi PAST SURGICAL HISTORY: L carotid tumor resection Social History: Smoking: daily, on nicotine patch Alcohol: on librium detox Drugs: on methadone; prior hx of IV & inhalation opioid abuse Allergies tramadol [From Ultram] Allergy (Severe, Verified 09/13/19 14:51) throat swelling HOME MEDICATIONS: Home Medications Medication Instructions Recorded Budesonide/Formeterol Fumarate 1 inh PO BID 03/14/19 [SYMBICORT 160/4.5mcg -] Citalopram Hydrobromide 40 mg PO HS 03/14/19 [Citalopram HBr] Tiotropium [place] [Spiriva] 1 inh PO DAILY 03/14/19 Methadone (Detox) [Dolophine -] 40 mg PO DAILY 09/10/19 PHYSICAL EXAMINATION Vital Signs - 24 hr 09/13/19 13:05 Temperature 97 F L Pulse Rate 77 Respiratory 18 Rate Blood Pressure 108/74 O2 Sat by Pulse 96 Oximetry (%) GENERAL: Awake, alert, and fully oriented, in no acute distress. HEENT: Occipital head lac; no active bleeding. No JVD. No carotid bruit. LUNGS: Breath sounds equal, clear to auscultation bilaterally. No wheezes, and no crackles. No accessory muscle use. HEART: Regular rate and rhythm, normal S1 and S2 without murmur, rub or gallop. ABDOMEN: Soft, nontender, not distended, normoactive bowel sounds. + umbilical hernia, reducible. MUSCULOSKELETAL: tenderness to gluteal region from fall EXTREMITIES: 2+ pulses, warm, well-perfused. B/l UE excoriation mensah. No peripheral edema. NEUROLOGICAL: Cranial nerves II-XII intact. PSYCHIATRIC: Appropriate mood and affect. SKIN: Warm, dry Laboratory Results - last 24 hr Laboratory Last Values WBC 8.0 K/mm3 (4.0-10.0) 09/13/19 15:00 RBC 4.91 M/mm3 (3.60-5.2) 09/13/19 15:00 Hgb 15.8 GM/dL (10.7-15.3) H 09/13/19 15:00 Hct 46.9 % (32.4-45.2) H 09/13/19 15:00 MCV 95.5 fl (80-96) 09/13/19 15:00 MCH 32.2 pg (25.7-33.7) 09/13/19 15:00 MCHC 33.7 g/dl (32.0-36.0) 09/13/19 15:00 RDW 13.9 % (11.6-15.6) 09/13/19 15:00 Plt Count 330 K/MM3 (134-434) D 09/13/19 15:00 MPV 8.5 fl (7.5-11.1) 09/13/19 15:00 Absolute Neuts (auto) 4.5 K/mm3 (1.5-8.0) 09/13/19 15:00 Neutrophils % 56.3 % (42.8-82.8) 09/13/19 15:00 Lymphocytes % 33.2 % (8-40) 09/13/19 15:00 Monocytes % 9.4 % (3.8-10.2) 09/13/19 15:00 Eosinophils % 0.6 % (0-4.5) 02/18/20 15:00 Basophils % 0.5 % (0-2.0) 09/13/19 15:00 Nucleated RBC % 0 % (0-0) 09/13/19 15:00 PT with INR 11.20 SEC (9.7-13.0) 09/13/19 15:00 INR 0.95 (0.83-1.09) 09/13/19 15:00 PTT (Actin FS) 37.1 SECONDS (25.2-36.5) H 09/13/19 15:00 D-Dimer 604 ng/ml (0-500) H 09/13/19 15:00 Sodium 135 mmol/L (136-145) L 09/13/19 15:00 Potassium 5.0 mmol/L (3.5-5.1) 09/13/19 15:00 Chloride 99 mmol/L (98-107) 09/13/19 15:00 Carbon Dioxide 28 mmol/L (21-32) 09/13/19 15:00 Anion Gap 8 MMOL/L (8-16) 09/13/19 15:00 BUN 15.8 mg/dL (7-18) 09/13/19 15:00 Creatinine 0.8 mg/dL (0.55-1.3) 09/13/19 15:00 Est GFR (CKD-EPI)AfAm 98.93 09/13/19 15:00 Est GFR (CKD-EPI)NonAf 85.36 09/13/19 15:00 Random Glucose 76 mg/dL (74-106) 09/13/19 15:00 Calcium 9.4 mg/dL (8.5-10.1) 09/13/19 15:00 Magnesium 2.3 mg/dL (1.8-2.4) 09/13/19 15:00 Total Bilirubin 0.6 mg/dL (0.2-1) 09/13/19 15:00 AST 32 U/L (15-37) 09/13/19 15:00 ALT 20 U/L (13-61) 09/13/19 15:00 Alkaline Phosphatase 98 U/L (45-117) 09/13/19 15:00 Creatine Kinase 291 U/L (26-192) H 09/13/19 15:00 Creatine Kinase Index 1.9 % (0.0-5.0) 09/13/19 15:00 CK-MB (CK-2) 5.6 ng/mL (0.5-3.6) H 09/13/19 15:00 Troponin I < 0.02 ng/ml (0.00-0.05) 09/13/19 15:00 Total Protein 8.1 g/dl (6.4-8.2) 09/13/19 15:00 Albumin 3.2 g/dl (3.4-5.0) L 09/13/19 15:00 Imaging: CT head & C-spine: No evidence of a focal intracranial lesion or hemorrhage seen. Mild deviation of the nasal septum towards the right. CT scan of the cervical spine without intravenous contrast Coronal and sagittal reconstruction images were obtained. There is marked degenerative narrowing of C6-C7 intervertebral disc space with suggestion of fusion. There is also suggestion of partial fusion of the facet joints. Minimal anterolisthesis of C4 over C5, likely degenerative. Otherwise, no gross fracture, subluxation or prevertebral soft tissue swelling is seen. No jumped facets are identified. C3-C4 moderate right-side degenerative facet hypertrophy with vacuum phenomena. Minimal right paracentral disc osteophyte and mild right uncovertebral hypertrophy is present. Calcification of the posterior longitudinal ligament along the posterior margin of C4 and upper C5 level. C5-C6 mild to moderate right paracentral disc osteophyte complex slightly indenting right anterior surface of the cervical cord and likely impinging right C6 nerve root. C6-C7 mild right paracentral disc osteophyte complex. C7-T1 mild degenerative disc disease Evaluation of the neck soft tissue demonstrates moderate calcified plaques at the right common carotid bifurcation and tiny plaque on the left. There is a tiny metallic density measuring 4 mm with beam hardening artifacts seen along the left anterior margin of C2. Visualized portion of the airway appears unremarkable. No gross enlarged lymph nodes are identified. Lung windows at the thoracic inlet demonstrates mild biapical pleural thickening ASSESSMENT/PLAN: 49 y.o. F PMH polysubstance abuse (IV & inhalation), infective endocarditis in 2015, COPD, anxiety, nicotine dependence presenting from [facility] admitted for syncope. #Syncope -orthostatics negative -trop neg x1; repeat in AM -EKG showing sinus rhythm, shortened SC (106), qtc 462 -CT head negative for acute bleeds -CT also showing moderate calcified plaques at the right common carotid bifurcation and tiny plaque on the left -f/u echo, carotid u/s, thyroids function labs -d/c clonidine-- pt received dose prior to syncopal episode -fall precautions -cardiac monitoring -f/u cardiology records from [facility]-- medical records form signed & in patient chart #EtOH withdrawal -continue lobrium detox today day #4, last dose tomorrow 09/14/2019 -CIWA checks -thiamine, folic acid, multivitamins daily -banana bag -monitor vitals closely #Polysubstance abuse -continue methadone -dose confirmed @ [facility], 40mg daily #C-spine degenerative disease -seen on CT c-spine: findings as above -may need outpatient follow up #COPD -duonebs q6h prn -CXR shows no acute pathology -supplemental o2 if needed -monitor SaO2 currently saturating well on RA #FEN -No standing fluids; received 500mL NS in ED -trend lytes replete prn -sodium controlled diet #Dispo tele obs Visit type - Emergency Visit Emergency Visit: Yes ED Registration Date: 09/13/19 Care time: The patient presented to the Emergency Department on the above date and was hospitalized for further evaluation of their emergent condition. - New Patient This patient is new to me today: Yes Date on this admission: 09/14/19 - Critical Care Critical Care patient: No ATTENDING PHYSICIAN STATEMENT I saw and evaluated the patient. I reviewed the resident's note and discussed the case with the resident. I agree with the resident's findings and plan as documented. SUBJECTIVE: OBJECTIVE: ASSESSMENT AND PLAN:
[2019-09-13] MEDS: MULTIVITAMINS (DAILY MVI) TABLET (FP) PO SCH (20:58)
[2019-09-13] MEDS ORDERED: ACETAMINOPHEN 325 MG TABLET (FP) PO PRN ×2 (21:00→21:27)
[2019-09-13] MEDS ORDERED: HEPARIN NA (PORCINE) 5,000 UNITS/ML 1ML VIAL ONE (21:00)
[2019-09-13] MEDS: HEPARIN NA (PORCINE) 5,000 UNITS/ML 1ML VIAL SQ SCH (21:01)
[2019-09-13] MEDS ORDERED: ACETAMINOPHEN 325 MG TABLET (FP) ONE (21:02)
[2019-09-13] MEDS ORDERED: FOLIC ACID INJECTION - 1 MG, THIAMINE HCL 100 MG, MULTIVIT INJECTION ADULT 10 ML in SOD... IVPB ONE (21:23)
[2019-09-14] MEDS ORDERED: chlordiazePOXIDE HCL 10 MG CAPSULE PO ONE (05:00)
[2019-09-14] MEDS ORDERED: chlordiazePOXIDE HCL 10 MG CAPSULE ONE (06:29)
[2019-09-14] MEDS ORDERED: HEPARIN NA (PORCINE) 5,000 UNITS/ML 1ML VIAL ONE (06:30)
[2019-09-14] MEDS: HEPARIN NA (PORCINE) 5,000 UNITS/ML 1ML VIAL SQ SCH (06:38)
[2019-09-14] MEDS ORDERED: METHADONE HCL 40 MG DISPERSABLE TABLET ONE (06:48)
[2019-09-14 06:59] LABS: BASO % 0.6 % (0-2.0); EOS % 2.4 % (0-4.5); HEMATOCRIT 44.3 % (32.4-45.2); HEMOGLOBIN 14.9 GM/dL (10.7-15.3); LYMPH % 35.2 % (8-40); MCH 32.4 pg (25.7-33.7); MCHC 33.6 g/dl (32.0-36.0); MEAN CELL VOLUME 96.2 fl (80-96); MEAN PLT VOLUME 8.3 fl (7.5-11.1); MONO % 10.4 % (3.8-10.2); NEUT % 51.4 % (42.8-82.8); PLATELET COUNT 291 K/MM3 (134-434); RDW 14.2 % (11.6-15.6); WHITE BLOOD COUNT 8.3 K/mm3 (4.0-10.0)
[2019-09-14] MEDS ORDERED: METHADONE HCL 40 MG DISPERSABLE TABLET PO SCH (07:00)
[2019-09-14 07:38] LABS: ALK PHOS 87 U/L (45-117); ANION GAP 6 MMOL/L (8-16); BILIRUBIN,TOTAL 0.6 mg/dL (0.2-1); BLOOD UREA NITROGEN 18.6 mg/dL (7-18); CALCIUM 8.6 mg/dL (8.5-10.1); CHLORIDE 101 mmol/L (98-107); CO2 29 mmol/L (21-32); CREATININE 0.8 mg/dL (0.55-1.3); GLUCOSE,RANDOM 90 mg/dL (74-106); POTASSIUM 4.2 mmol/L (3.5-5.1); SGOT/AST 32 U/L (15-37); SGPT/ALT 20 U/L (13-61); SODIUM 136 mmol/L (136-145); TOT PROT 7.5 g/dl (6.4-8.2)
--- NOTE | 2019-09-14 09:38 | ECHO ---
Version: 1 Name: LUBNA LYNN Exam: Adult Echocardiogram Study Date: 09/14/2019, 8:35 AM Age: 49 Years MMode/2D Measurements & Calculations IVSd: 0.95 cm LVIDs: 3.0 cm LVIDd: 4.7 cm LVPWd: 0.99 cm LAV (MOD-bp): 52.0 ml ACS: 1.57 cm Ao root diam: 2.6 cm LVOT diam: 1.97 cm LA dimension: 3.0 cm Doppler Measurements & Calculations MV E max blair: 62.7 cm/sec Med E/e': 12.1 MV A max blair: 50.3 cm/sec Med Peak E' Blair: 5.2 cm/sec MV E/A: 1.25 Lat E/e': 9.9 Lat Peak E' Blair: 6.3 cm/sec Ao max P.1 mmHg FRANCOIS(I,D): 3.3 cm Ao mean P.4 mmHg LV V1 mean: 78.0 cm/sec Ao V2 max: 133.0 cm/sec LV V1 mean P.9 mmHg TR max blair: 212.1 cm/sec TR max P.2 mmHg Left Ventricle The left ventricular size, thickness and function are normal. Ejection Fraction = 65%. Left Ventricu lar Filling pattern is normal for age. Right Ventricle The right ventricle is normal in size and function. Atria Normal left and right atrial size and function. Mitral Valve The mitral valve is normal in structure and function. There is no mitral regurgitation noted. Tricuspid Valve The tricuspid valve is normal in structure and function. There is mild tricuspid regurgitation. Aortic Valve The aortic valve is normal in structure and function. Pulmonic Valve The pulmonic valve is not well seen, but is grossly normal. Great Vessels The aortic root is normal size. Normal aortic arch, descending and ascending aorta. Pericardium/Pleura There is a mild pericardial effusion. Summary Statements The left ventricular size, thickness and function are normal Ejection Fraction = 65%. Left Ventricular Filling pattern is normal for age. The right ventricle is normal in size and function. Normal left and right atrial size and function. The mitral valve is normal in structure and function. There is no mitral regurgitation noted. The tricuspid valve is normal in structure and function. There is mild tricuspid regurgitation. The aortic valve is normal in structure and function. The pulmonic valve is not well seen, but is grossly normal. The aortic root is normal size. Normal aortic arch, descending and ascending aorta There is a mild pericardial effusion. Erwin Niremberg 09/14/2019, 9:37 AM Ordering Physician: FEI BYRNE Referring Physician: FEI BYRNE Performed By: Romana Graham
[2019-09-14] MEDS ORDERED: FOLIC ACID 1 MG TABLET (FP) PO SCH (10:00)
[2019-09-14] MEDS ORDERED: THIAMINE HCL 100 MG TABLET (FP) PO SCH (10:00)
[2019-09-14] MEDS ORDERED: SODIUM CHLORIDE 1,000 ML IV STA (10:34)
[2019-09-14] MEDS: MULTIVITAMINS (DAILY MVI) TABLET (FP) PO SCH (11:12)
[2019-09-14 13:05] VITALS: BP 95/58; PULSE 65
--- NOTE | 2019-09-14 13:56 | PN ---
Teaching Attending Note Name of Resident: Eladio Rodriguez ATTENDING PHYSICIAN STATEMENT I saw and evaluated the patient. I reviewed the resident's note and discussed the case with the resident. I agree with the resident's findings and plan as documented. SUBJECTIVE: no fever ro chills. she feels much better. no Cp or N/V. she denies any palpitations today ot during her stay in [facility]. she had palpitations in in past 2 weeks. she admits to having a murmur . 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 Strength 5/5 in upper and lower extremities proximaly and distally , ASSESSMENT AND PLAN: 49 y/o lady with h/o opioid abuse on methadone, ETOH abuse, endocarditis, asthma , heart murmur, and anxiety who presented from [facility] due to syncope 1- Syncope: likely orthostatic hypotension in setting of poor po intake, drug use, and clonidine use . needs senior living cardiac monitoring due to palpitaions in past. - IVF given . sx improved . - EKG reviewed. - refer back to her card , for cardiac monitoring. - CTA and head CT reviewed. 2- pulmonary nodules and mediastinal LAP: advised patient to follow with pulmonary. she understands importance to r/o malignancy 3- h/o Asthma: cont inhalers 4- polysubstance abuse: cont her home methadone. refer back to [facility] for continued detox dc to [facility]
--- NOTE | 2019-09-14 15:44 | DS ---
Physical Exam: SUBJECTIVE: Patient seen and examined at the bedside. States that she feels better and lightheadedness has resolved. No longer has palpitations. Denies fever, chills, cp, sob, abd pain, n/v/c/d, headaches, dizziness, visual changes. OBJECTIVE: Vital Signs Period Temp Pulse Resp BP Sys/Saucedo Pulse Ox Last 24 Hr 60-84 16-18 95-137/58-94 96-98 PHYSICAL EXAM GENERAL: The patient is awake, alert, and fully oriented, in no acute distress. HEAD: Noted abrasions on the posterior side of the head. EYES: Conjunctiva with redness of the left eye. Normal extraocular motions. ENT: Oropharynx clear without exudates, moist mucous membranes. LUNGS: Breath sounds equal, mild coarse breath sounds. HEART: Regular rate and rhythm, S1, S2 with trace systolic ejection murmur. ABDOMEN: Soft, nontender, nondistended, normoactive bowel sounds, no guarding, no rebound, no masses. EXTREMITIES: 2+ pulses, warm, well-perfused, no edema. NEUROLOGICAL: Cranial nerves II through XII grossly intact. 5/5 muscle strength upper and lower extremities bilaterally. Sensation intact to gross touch throughout. PSYCH: Normal mood, normal affect. LABS Laboratory Results - last 24 hr 09/13/19 09/13/19 09/13/19 15:00 15:00 15:00 WBC 8.0 RBC 4.91 Hgb 15.8 H Hct 46.9 H MCV 95.5 MCH 32.2 MCHC 33.7 RDW 13.9 Plt Count 330 D MPV 8.5 Absolute Neuts (auto) 4.5 Neutrophils % 56.3 Lymphocytes % 33.2 Monocytes % 9.4 Eosinophils % 0.6 Basophils % 0.5 Nucleated RBC % 0 PT with INR 11.20 INR 0.95 PTT (Actin FS) 37.1 H D-Dimer Sodium 135 L Potassium 5.0 Chloride 99 Carbon Dioxide 28 Anion Gap 8 BUN 15.8 Creatinine 0.8 Est GFR (CKD-EPI)AfAm 98.93 Est GFR (CKD-EPI)NonAf 85.36 Random Glucose 76 Calcium 9.4 Magnesium 2.3 Total Bilirubin 0.6 AST 32 ALT 20 Alkaline Phosphatase 98 Creatine Kinase 291 H Creatine Kinase Index 1.9 CK-MB (CK-2) 5.6 H Troponin I < 0.02 Total Protein 8.1 Albumin 3.2 L TSH 09/13/19 09/14/19 09/14/19 15:00 06:30 06:30 WBC 8.3 RBC 4.60 Hgb 14.9 Hct 44.3 MCV 96.2 H MCH 32.4 MCHC 33.6 RDW 14.2 Plt Count 291 MPV 8.3 Absolute Neuts (auto) 4.2 Neutrophils % 51.4 Lymphocytes % 35.2 Monocytes % 10.4 H Eosinophils % 2.4 D Basophils % 0.6 Nucleated RBC % 0 PT with INR INR PTT (Actin FS) D-Dimer 604 H Sodium 136 Potassium 4.2 Chloride 101 Carbon Dioxide 29 Anion Gap 6 L BUN 18.6 H Creatinine 0.8 Est GFR (CKD-EPI)AfAm 98.93 Est GFR (CKD-EPI)NonAf 85.36 Random Glucose 90 Calcium 8.6 Magnesium Total Bilirubin 0.6 AST 32 ALT 20 Alkaline Phosphatase 87 Creatine Kinase Creatine Kinase Index CK-MB (CK-2) Troponin I < 0.02 Total Protein 7.5 Albumin 3.0 L TSH 1.06 HOSPITAL COURSE: Domenica Vazuqez is a 49 year old female with a past medical history of polysubstance abuse (IV & inhalation), infective endocarditis in 2015, COPD, anxiety, nicotine dependence presenting from [facility] admitted for syncope. Imaging of head CT and cervical head CT as below. Orthostatics negative. Patient likely had syncope due to poor oral intake and clonidine. Echo was within normal limits. Carotid duplex without any hemodynamically significant stenosis. Patient improved with fluid administration and patient completed her Librium detox while at this facility. CTA of the chest noted below with enlarged lymph nodes, pulmonary nodules, bulla , and scarring. Patient was recommended to follow up with her legal records manager at [facility] for follow up CT scans and management of her chronic conditions. Patient understood that nodules need to be worked up in order to rule out malignancy. Patient was recommended to follow up with her PCP, procurement representative, pulmnologist and to cease drinking alcohol and cease nicotine use. Patient was explained the plan, was in agreement, and reiterated it. Patient was discharged in stable medical condition. CT head & C-spine: No evidence of a focal intracranial lesion or hemorrhage seen. Mild deviation of the nasal septum towards the right. CT scan of the cervical spine without intravenous contrast Coronal and sagittal reconstruction images were obtained. There is marked degenerative narrowing of C6-C7 intervertebral disc space with suggestion of fusion. There is also suggestion of partial fusion of the facet joints. Minimal anterolisthesis of C4 over C5, likely degenerative. Otherwise, no gross fracture, subluxation or prevertebral soft tissue swelling is seen. No jumped facets are identified. C3-C4 moderate right-side degenerative facet hypertrophy with vacuum phenomena. Minimal right paracentral disc osteophyte and mild right uncovertebral hypertrophy is present. Calcification of the posterior longitudinal ligament along the posterior margin of C4 and upper C5 level. C5-C6 mild to moderate right paracentral disc osteophyte complex slightly indenting right anterior surface of the cervical cord and likely impinging right C6 nerve root. C6-C7 mild right paracentral disc osteophyte complex. C7-T1 mild degenerative disc disease Evaluation of the neck soft tissue demonstrates moderate calcified plaques at the right common carotid bifurcation and tiny plaque on the left. There is a tiny metallic density measuring 4 mm with beam hardening artifacts seen along the left anterior margin of C2. Visualized portion of the airway appears unremarkable. No gross enlarged lymph nodes are identified. Lung windows at the thoracic inlet demonstrates mild biapical pleural thickening. CTA of Chest Impression: No CT evidence of pulmonary embolism or other acute intrathoracic pathology. A nonspecific irregular 1 cm right upper lobe pulmonary nodule is noted. Direct comparison with previous CT studies would be quite helpful if available from a different facility. If prior studies aren't not available additional evaluation utilizing PET/CT is suggested. A 0.5 cm additional right upper lobe pulmonary nodule is seen which is probably benign. A 2 x 1 cm left upper lobe subpleural bulla is noted ventrally with possible slight smooth wall thickening. Correlation with 3 month follow-up CT is suggested to exclude developing pathology. Mild bibasilar discoid atelectasis/scarring. Several mildly prominent bilateral hilar lymph nodes are noted which are probably hyperplastic in nature. Reevaluation may be performed at that time of 3 month follow-up CT. Date of Admission:09/13/19 Date of Discharge: 09/14/19 Minutes to complete discharge: 35 Discharge Summary Problems reviewed: Yes Reason For Visit: SYNCOPE AND COLLAPSE Condition: Improved - Instructions Diet, Activity, Other Instructions: You were admitted after you had an episode where you fainted and collapsed. It is suspected that you had this episode because you were dehydrated and had poor intake of foods and liquids and received clonidine . You were given fluids and your symptoms resolved. You had a CT scan of your head which did not show any new findings. You had a CT scan of your cervical spine which showed some calcified plaques in your arteries and some degenerative disc disease in your spine for which you should follow up with your primary care physician. You had an ultrasound of your carotid arteries which showed some mild disease for which you should follow up with your primary care physician. You had a CT of your chest which showed some pulmonary nodules, enlarged lymph nodes, abnormalities in your lung tissue, and scarring. You are advised to follow up with your legal records manager for these findings to do repeat imaging You had an echocardiogram performed which showed normal function and size of the heart. MEDICATIONS Continue to take all of your home medications as prescribed. REFERRALS Please follow up with your primary care physician, Dr. Lucille Benoit, within 1 week. If you do not have a primary care physician you may follow up with the resident's clinic for which the information is provided. Please follow up with your legal records manager, within 1 week. If you do not have one , you may follow up with Dr. Remi Hughes for which the information is provided. Please follow up with your procurement representative, within 1 week. you will need a prolonged cardiac monitoring for your palpitations SPECIAL INSTRUCTIONS You are advised to stop drinking alcohol as it will decrease your risk of developing further medical problems. You are advised to cease smoking as it can help decrease your risk of developing further medical problems. If you have further symptoms of lightheadedness, fainting, falls, chest pain, shortness of breath, fevers, or any other general feelings of unwellness, please call 911 or go to your nearest emergency room. Referrals: Lucille Benoit [Other] - 1 Week Remi Hughes MD [Staff Physician] - 1 Week Disposition: HOME - Home Medications Comprehensive Discharge Medication List: Ambulatory Orders Budesonide/Formeterol Fumarate [SYMBICORT 160/4.5mcg -] 1 inh PO BID 03/14/19 Citalopram Hydrobromide [Citalopram HBr] 40 mg PO HS 03/14/19 Tiotropium [place] [Spiriva] 1 inh PO DAILY 03/14/19 Methadone (Detox) [Dolophine -] 40 mg PO DAILY 09/10/19 Albuterol Sulfate Inhaler - [Ventolin HFA Inhaler -] 1 - 2 inh PO QID 09/14/19 This patient is new to me today: Yes Date on this admission: 09/14/19 Emergency Visit: Yes ED Registration Date: 09/13/19 Care time: The patient presented to the Emergency Department on the above date and was hospitalized for further evaluation of their emergent condition. Critical Care patient: No - Discharge Referral Referred to [facility] Med [facility].C.: No
--- NOTE | 2019-09-17 12:16 | PDOC ---
Documentation entered by Dorothy Martinez SCRIBE, acting as scribe for Malcolm Yeung MD. Malcolm Yeung MD: This documentation has been prepared by the Juan stanton Xhesika, SCRIBE, under my direction and personally reviewed by me in its entirety. I confirm that the documentation accurately reflects all work, treatment, procedures, and medical decision making performed by me. Attending Attestation - Resident Resident Name: Sergio Kumar - ED Attending Attestation I have performed the following: I have examined & evaluated the patient, The case was reviewed & discussed with the resident, I agree w/resident's findings & plan, Exceptions are as noted - HPI HPI: 09/13/19 15:08 49-year-old female history of COPD, hx of endocarditis presents with several episodes of syncope today. Patient is undergoing detox from etoh/heroin at [facility] and today while ambulating down the hallway she felt briefly lightheaded and then had a witnessed syncopal episode, she otherwise felt okay without any other symptoms including any chest pain, palpitations, shortness of breath, nausea, vomiting, melena, BPR, fever, chills. Patient was told to rest however several hours later she went up to go to the bathroom and then syncopized again however she had no symptoms prior to her syncopal episode. The patient denies any prior episodes of syncope in the past. States that she did have endocarditis several years ago that was treated with antibiotics and she has been fine since then. She denies any recent fevers or chills however she did states she have some URI symptoms that have resolved several weeks ago. Exam: GENERAL: The patient is awake, alert, and fully oriented, Nontoxic - in no acute distress. HEAD: Normocephalic, contusion on the left occiput without open laceration or signs of active bleeding. No step-off/crepitus EYES: extraocular movements intact, sclera anicteric, conjunctiva clear. ENT: Normal voice, Moist mucous membranes. NECK: Normal range of motion, supple, no focal midline tenderness along the cervical thoracic or lumbar spine, no paraspinal tenderness appreciated LUNGS: Breath sounds equal, clear to auscultation bilaterally. No wheezes, no rhonchi, no rales. HEART: Regular rate and rhythm, normal S1 and S2 without murmur, rub or gallop. ABDOMEN: Soft, nontender, No guarding, no rebound. No CVA tenderness EXTREMITIES: Normal range of motion, no edema. NEUROLOGICAL: No facial assymetry, Normal speech, PSYCH: Normal mood, normal affect. SKIN: Warm, Dry, normal turgor, ap concern for vavular/cadiac cause for sncope in light of prior endocarditis - Physicial Exam PE: 09/17/19 12:15 see above - Medical Decision Making 09/13/19 16:44 pts lab reviewed dimer elevated will CT to ro PE case signed out to evening team to fu with CTA and dispo pt
== END 2019-09-14 14:20 | disposition home or self-care (01) ==
LOC: JER 12:56 → JERBED 17:52 → INTOOBSV 17:52
PROVIDERS: ADMIT Internal Medicine; ATTEND Internal Medicine
PROC: 3E033GC Introduction of Other Therapeutic Substance into Peripheral Vein, Percutaneous Approach (ICD-10-PCS; principal; 2019-09-13)
PROC: 3E0337Z Introduction of Electrolytic and Water Balance Substance into Peripheral Vein, Percutaneous Approach (ICD-10-PCS; 2019-09-13)
PROC: 3E013GC Introduction of Other Therapeutic Substance into Subcutaneous Tissue, Percutaneous Approach (ICD-10-PCS; 2019-09-13)
DX: R55 Syncope and collapse (principal); F10.230 Alcohol dependence with withdrawal, uncomplicated; F11.20 Opioid dependence, uncomplicated; F17.210 Nicotine dependence, cigarettes, uncomplicated; J44.9 Chronic obstructive pulmonary disease, unspecified; M50.30 Other cervical disc degeneration, unspecified cervical region; R91.8 Other nonspecific abnormal finding of lung field; S01.81XA Laceration without foreign body of other part of head, initial encounter; W18.39XA Other fall on same level, initial encounter; Y93.89 Activity, other specified; Y92.239 Unspecified place in hospital as the place of occurrence of the external cause; Z86.79 Personal history of other diseases of the circulatory system; Z88.8 Allergy status to other drugs, medicaments and biological substances; Z86.19 Personal history of other infectious and parasitic diseases
CPT/HCPCS: 36415; 70450-TC; 71045-TC-FY; 71275-TC; 72126-TC; 80053; 82550; 82553; 83735; 84443; 84484; 85025; 85379; 85610; 85730; 90715; 93005; 93010; 93306-TC; 93880-TC; 96361; 96365; 96366; 96372; 99285-25; G0378; J1644; J7030; Q9967